=== PATIENT | male | born 1955 | race Caucasian/White ===

== ENCOUNTER 2019-07-25 05:32 | Outpatient (CLI) | payer MEDICARE ==
[~2019-07-25] VITALS: Ht 170.2 cm; Wt 62.7 kg
[2019-07-25] MEDS ORDERED: TAMS0.4C98 PO (09:46)
[2019-07-25] MEDS ORDERED: FINA5TAB6 PO (09:46)
== END 2019-07-25 09:48 | disposition home or self-care (01) ==
LOC: PREOP 05:32
PROVIDERS: ATTEND Urology
DX: Z01.818 Encounter for other preprocedural examination (principal)

== ENCOUNTER 2019-07-27 06:47 | Day surgery (SDC) | payer BC, MEDICARE ==
[2019-07-27] VITALS (10 sets, daily range): BP systolic 114–155; BP diastolic 67–102
[~2019-07-27] VITALS: Ht 170 cm; Wt 62.7 kg
[~2019-07-27 06:47] MED LIST: FINA5TAB6 PO; TAMS0.4C98 PO
[2019-07-27] MEDS ORDERED: cefTRIAXone FOR IV USE 1,000 MG in WATER (STERILE) FOR INJECTION 10 ML IV ONE (07:00)
[2019-07-27] MEDS ORDERED: LIDOCAINE PF 2% 5 ML (XYLOCAINE) VIAL ONE (07:06)
[2019-07-27] MEDS ORDERED: proPOfol 200 MG/20 ML (DIPRIVAN) VIAL IV ONE (07:06)
[2019-07-27] MEDS ORDERED: ONDANSETRON 4 MG/2 ML (SDV) Z0FRAN ONE (07:06)
[2019-07-27] MEDS ORDERED: DEXAMETHASONE 10 MG/ML (DECADRON) 1 ML VIAL ONE (07:06)
[2019-07-27] MEDS ORDERED: MIDAZOLAM 2 MG/2 ML (VERSED) VIAL ONE (07:06)
[2019-07-27] MEDS ORDERED: SEVOFLURANE (ULTANE) 15 ML INHAL SOLN ONE ×2 (07:06→08:38)
[2019-07-27] MEDS ORDERED: fentaNYL INJECTION 100 MCG/2 ML AMP ONE (07:07)
[2019-07-27] MEDS: LACTATED RINGERS 1,000 ML IV PRN ×2 (07:17→12:16)
--- NOTE | 2019-07-27 08:02 | Progress Note-Pre Operative ---
Pre-Operative Progress Note H&P Reviewed The H&P was reviewed, patient examined and no changes noted. Date Seen by Provider: Jul 27, 2019 Time Seen by Provider: 08:01 Date H&P Reviewed: Jul 27, 2019 Time H&P Reviewed: 08:01 Pre-Operative Diagnosis: BPH WITH PROSTATISM ESTEBAN SALCIDO MD Jul 27, 2019 08:02 POS
[2019-07-27] MEDS ORDERED: ROCURONIUM 10 MG/ML 5 ML SYRINGE IV ONE (08:27)
[2019-07-27] MEDS ORDERED: NEOSTIGMINE 3 MG/3 ML VIAL ONE (08:39)
[2019-07-27] MEDS ORDERED: GLYCOPYRROLATE 0.2 MG/ML (ROBINUL) 2 ML VIAL ONE (08:39)
--- NOTE | 2019-07-27 08:57 | Progress Note-Post Operative ---
Post-Operative Progess Note Surgeon (s)/Manager Photography (s) Surgeon ESTEBAN SALCIDO MD Manager Photography: NONE Pre-Operative Diagnosis BPH WITH PROSTATISM Post-Operative Diagnosis SAME Procedure & Operative Findings Date of Procedure 07/27/19 Procedure Performed/Findings UROLIFT IMPLANTS (4) Anesthesia Type GENERAL Estimated Blood Loss Estimated blood loss (mL): LESS THAN 50CC Specimens/Packing Specimens Removed NONE Packing: NONE ESTEBAN SALCIDO MD Jul 27, 2019 08:57 POS
[2019-07-27] MEDS ORDERED: HYDROmorphone 2 MG/ML VIAL (DILAUDID) IV ONE (09:00)
[2019-07-27] MEDS ORDERED: ONDANSETRON 4 MG/2 ML (SDV) Z0FRAN IVP PRN ×2 (09:00→18:00)
--- NOTE | 2019-07-27 09:02 | Discharge Inst-Urology ---
Discharge Inst-Urology Reconcile Patient Problems Problems Reviewed?: Yes Final Diagnosis BPH WITH PROSTATISM Patient Instructions/Follow Up Plan/Assessment/Instructions EKG in R.R as well as Cardiology consult for "New onset of atrial fibrillation" Please report status of urine color prior to discharge to decide plan on Mckay catheter Please make appointment to been seen in office in 2 weeks, rest till then Continue Flomax and Proscar Increase oral fluids for one week and then as needed. Diet as tolerated. Further orders and meds per cardiology If questions or concerns contact your physician Or seek help at emergency department. ESTEBAN SALCIDO MD Jul 27, 2019 09:01 POS
--- NOTE | 2019-07-27 11:46 | Consultation-Cardiology ---
HPI-Cardiology Cardiology Consultation: Date of Consultation 07/27/19 Date of Admission Attending Physician Rahat Cervantes MD Admitting Physician Marvin Rosales MD Consulting Physician Valerie OVERTON MD HPI: Time Seen by a Provider: 11:46 Chief Complaint: New onset atrial fibrillation This is a 63-year-old gentleman who follows with Dr. Cervantes. He presented for prostrate surgery. Prostrate surgery was done this morning. Anesthesia noted irregularly irregular heart rhythm. He was diagnosed with newly onset atrial fibrillation with controlled ventricular rate. The patient denies any cardiac symptoms. He denies palpitations, syncope, near-syncope or shortness of breath. He denies any previous cardiac history or evaluation. He denies active smoking. He quit smoking in 1985. He denies significant family history in the family. He denies diabetes or hypertension. Review of Systems-Cardiology Review of Systems Constitutional: As described under HPI; No As described under HPI, No no symptoms reported, No chills, No fever, No lightheadedness Eyes: No As described under HPI, No no symptoms reported, No blindness, No blurred vision, No contact lenses, No drainage, No decreased acuity, No foreign body sensation, No pain, No vision change Ears/Nose/Throat: No As described under HPI, No no symptoms reported, No chronic hearing loss, No ear discharge, No ear pain, No nasal drainage, No ulcerations Respiratory: No no symptoms reported; As described under HPI; No As described under HPI, No cough, No orthopnea, No shortness of breath, No SOB with excertion Cardiovascular: No no symptoms reported; As described under HPI; No As described under HPI, No chest pain, No edema, No irregular heart rate, No lightheadedness, No palpitations Gastrointestinal: No no symptoms reported, No As described under HPI, No abdomen distended, No abdominal pain, No blood streaked bowels, No constipation, No diarrhea, No nausea, No vomiting, No stool coloration changes Genitourinary: No As described under HPI, No burning, No dysuria, No discharge, No frequency, No flank pain, No hematuria, No urgency Skin: No rash, No skin related problems, No ulcerations Psychiatric/Neurological: No anxiety, No depression, No seizure, No focal weakness, No syncope Hematologic: No bleeding abnormalities OJF-Bqsyqj-Ucards Hx Patient Social History Alcohol Use: Denies Use Recreational Drug Use: No Smoking Status: Former Smoker Recent Foreign Travel: No Recent Infectious Disease Expo: No Immunizations Up To Date Date of Influenza Vaccine: Jun 07, 2019 Past Medical History PMH As described under Assessment. Allergies and Home Medications Allergies Coded Allergies: No Known Drug Allergies (Unverified , 07/25/19) Home Medications Finasteride 5 Mg Tablet, 5 MG PO DAILY, (Reported) Tamsulosin HCl 0.4 Mg Cap, 0.4 MG PO DAILY, (Reported) Patient Home Medication List Home Medication List Reviewed: Yes Physical Exam-Cardiology Physical Exam Vital Signs/I&O 07/27/19 07/27/19 07/27/19 07/27/19 07:10 08:51 08:51 09:02 Temp 36.2 36.6 Pulse 69 Resp 18 10 12 B/P (MAP) 145/100 (115) 146/99 (115) 155/102 (119) Pulse Ox 99 98 100 O2 Delivery Room Air OxyMask OxyMask OxyMask O2 Flow Rate 10 10 10 07/27/19 07/27/19 07/27/19 07/27/19 09:10 09:20 09:21 09:30 Temp 36.6 Resp 19 16 16 B/P (MAP) 136/93 (107) 145/90 (108) 132/95 (107) Pulse Ox 96 98 95 O2 Delivery OxyMask OxyMask Room Air Room Air O2 Flow Rate 10 10 07/27/19 07/27/19 07/27/19 09:40 09:50 12:12 Pulse 99 Resp 13 B/P (MAP) 138/82 (100) Pulse Ox 99 O2 Delivery Room Air Room Air Capillary Refill : Constitutional: appears stated age, AAO x 3; No apparent distress; well- developed, well-nourished HEENT: PERRL; No discharge; hearing is well preserved, oral hygience is good; No ulceration, No xanthelasmas are seen Neck: No carotid bruit; carotid pulses are 2 + bilaterally Respiratory: chest is bilaterally symmetric, lungs clear to auscultation Cardiovascular: irregularly irregular, S1 and S2 Gastrointestinal: soft, audible bowel sounds; No spleenomegaly Rectal: deferred Extremities: normal range of motion, non-tender, normal inspection; No clubbing, No cyanosis; no lower extremity edema bilateral; No significant edema Neurologic/Psychiatric: no motor/sensory deficits, alert, normal mood/affect, oriented x 3, power is 5/5 both on sides Skin: normal color, warm/dry; No rash, No ulcerations ECG Impression ECG Initial ECG Impression: Atrial Fibrillation A/P-Cardiology Assessment/Admission Diagnosis Status post prostrate surgery, New onset atrial fibrillation with controlled ventricular rate. Plan Status post prostrate surgery. Mckay catheter in. Mild bleeding noted. Oral anticoagulation is contraindicated for at least 24-48 hours. I discussed with Dr. Cervantes. New onset atrial fibrillation with controlled ventricular rate. Continue telemetry. Echocardiogram. Will likely be discharged with a monitor with early follow-up. Hopefully we will be able to start him on oral anticoagulation in 24-48 hours. Patient has mildly elevated blood pressure but is not known to be hypertensive. Based on the CHADSVASC score , his score without HTN will be 1 therefore aspirin is equivalent to NOAC for stroke prevention. If we include hypertension than his CHADSVASC score is 2 for age over 65 and hypertension. Then oral anticoagulation is superior to aspirin for stroke prevention. This was explained to the patient. We will likely start him on low-dose Cardizem. Thank you for your consultation. Please call me if you have any questions. David Overton MD, FACP, FACC, [facility], FHRS, CCDS Interventional Cardiology Cardiac Electrophysiology Vascular Medicine and Endovascular Interventions Clinical Quality Measures DVT/VTE Risk/Contraindication: Risk Factor Score Per Nursin RFS Level Per Nursing on Admit: 2=Moderate Valerie OVERTON MD Jul 27, 2019 11:46 POS
--- NOTE | 2019-07-27 12:07 | Anesthesia-General Post-Op ---
General Patient Condition Mental Status/LOC: Same as Preop Cardiovascular: Unsatisfactory Nausea/Vomiting: Absent Respiratory: Satisfactory Pain: Controlled Complications: Absent Post Op Complications Complications New onset A-Fib, cardiology consult obtained. Follow Up Care/Instructions Patient Instructions None needed. Anesthesia/Patient Condition Patient Condition Patient is doing well, no complaints, stable vital signs, no apparent adverse anesthesia problems. No complications reported per nursing. D/C home per [facility] Criteria: No SERENITY HERNANDEZ CRNA Jul 27, 2019 12:07 POS
--- NOTE | 2019-07-27 12:56 | OPERATIVE REPORT ---
DATE OF SERVICE: 07/27/2019 PREOPERATIVE DIAGNOSIS: Benign prostatic hypertrophy with prostatism. POSTOPERATIVE DIAGNOSIS: Benign prostatic hyperplasia with prostatism. OPERATION PERFORMED: UroLift implants "four". DESCRIPTION OF PROCEDURE: Under satisfactory general anesthesia, the patient in lithotomy position, genitalia were prepped and draped in the usual sterile fashion. The special cystoscope was introduced in the bladder. Again, it was visualized the enlarged prostate causing bladder neck obstruction, bladder trabeculation and no other abnormalities in the bladder. I went ahead and inserted four UroLift implants, two proximal about 1.5 cm distal to the bladder neck and the other two at the level of the veru. There was very good separation of the lateral lobe and a patent channel. There was minimal bleeding. It was noted that the first instrument to be used was defective. It would not lock. It will be sent back to the company to be replaced, and also, the patient had atrial fibrillation during surgery, which according to the daughter has never had before. So, we are going to go ahead and obtain a Cardiology consult in the recovery room as well as an EKG and manage accordingly. I went ahead and decided to leave the Mckay catheter to see the color of the urine and when the patient is fully awake prior to dismissal, we will decide on the plan for the catheter. The surgery and the plan was fully explained to his daughter. Job ID: [id number] DocumentID: [id number] Dictated Date: 07/27/2019 09:04:34 [employer] Superintendent Date: 07/27/2019 12:55:12 Dictated By: ESTEBAN SALCIDO MD
--- NOTE | 2019-07-27 15:04 | Consultation - Hospitalist ---
HPI History of Present Illness: HPI/Chief Complaint Pt is a 63yoCM with a PMH of BPH who was admitted this afternoon for urolift. Intraoperatively he developed atrial fibrillation which is new onset for him. He states he has had no chest pain, palpitations, or history of cardiac disease. He denies any elevated blood pressure or DM. He denies any pain from his procedure. He was already had an echo done and was seen by cardiology. He has no complains at this time. I am consulted for medical management. Source: patient Date Seen 07/27/19 Attending Physician Rahat Cervantes MD PCP Marvin Rosales MD Referring Physician Date of Admission Home Medications & Allergies Home Medications Reviewed patient Home Medication Reconciliation performed by pharmacy medication reconciliations solar fabrication technician and/or nursing. Patients Allergies have been reviewed. Allergies Allergies Coded Allergies No Known Drug Allergies (Onaqpiqlhq28/18/19) Past Qwpftmb-[id number]-Kgdsnl Hx Past Med/Social Hx: Reviewed Nursing Past Med/Soc Hx Patient Social History Alcohol Use: Denies Use Recreational Drug Use: No Smoking Status: Former Smoker Former Smoker, Quit: Jul 25, 1987 Recent Foreign Travel: No Contact w/other who traveled: No Recent Hopitalizations: No Recent Infectious Disease Expo: No Immunizations Up To Date Date of Influenza Vaccine: Jun 07, 2019 Seasonal Allergies Seasonal Allergies: Yes Past Medical History Urolift Respiratory: Asthma Genitourinary: Benign Prostatic Hyperpl Musculoskeletal: Arthritis HEENT: Cataract History of Blood Disorders: No Review of Systems Constitutional: No chills, No fever, No weakness Respiratory: No hemoptysis, No short of breath Cardiovascular: No chest pain, No edema, No Hx of Intervention, No palpitations, No syncope Physical Exam Physical Exam Vital Signs Vital Signs - First Documented 07/27/19 07:10 Temp 36.2 Pulse 69 Resp 18 B/P (MAP) 145/100 (115) Pulse Ox 99 O2 Delivery Room Air Capillary Refill : Height, Weight, BMI Height: '" Weight: lbs. oz. kg; 21.69 BMI Method: General Appearance: No Apparent Distress, WD/WN Respiratory: Lungs Clear, No Respiratory Distress Cardiovascular: No JVD, No Murmur, Irregularly Irregular Gastrointestinal: Normal Bowel Sounds, Non Tender, Soft Genital/Rectal: Other (cathether in place with pink tinged urine) Extremity: No Calf Tenderness, No Pedal Edema Neurologic/Psychiatric: Alert, Oriented x3, Normal Mood/Affect Results Results/Procedures Labs Patient resulted labs reviewed. Assessment/Plan Assessment and Plan Assess & Plan/Chief Complaint Atrial Fibrillation, new onset Rate controlled Cardiology consulted, appreciate recs Echo ordered CHASVASC 1- will need ASA when ok with urolofy BPH Urolift done done, POD #0 Management per Urology Elevated Blood Pressure No known diagnosis and now improved, will trend If remains elevated will change CHADSVASC score Diagnosis/Problems Diagnosis/Problems (1) Afib Qualifiers: Atrial fibrillation type: paroxysmal Qualified Codes: I48.0 - Paroxysmal atrial fibrillation (2) BPH (benign prostatic hyperplasia) Status: Acute Qualifiers: Lower urinary tract symptom presence: symptoms present Lower urinary tract symptom detail: unspecified Qualified Codes: N40.1 - Benign prostatic hyperplasia with lower urinary tract symptoms Clinical Quality Measures DVT/VTE Risk/Contraindication: Risk Factor Score Per Nursin RFS Level Per Nursing on Admit: 2=Moderate SOREN LEÓN MD Jul 27, 2019 15:04 POS
[2019-07-28 03:25] VITALS: BP 122/77
[2019-07-28 08:30] VITALS: BP 116/74
--- NOTE | 2019-07-28 10:35 | Progress Note - Urology ---
Progress Note-Urology Progress Notes/Assess & Plan Progress/Assessment & Plan doing well. urine clear and arnol. may discharge and start blood thinner in 48 hours if no bleeding. instructions given to him Final Diagnosis BPH and prostatism ESTEBAN SALCIDO MD Jul 28, 2019 10:35 POS
[2019-07-28 11:06] VITALS: BP 116/74
[2019-07-28] MEDS ORDERED: APIX5TAB PO ×2 (11:06→11:58)
[2019-07-28] MEDS ORDERED: SULF1TAB35 PO (11:10)
[2019-07-28] MEDS ORDERED: PHEN-640 PO (11:10)
[2019-07-28] MEDS ORDERED: DILT120C82 PO (12:02)
--- NOTE | 2019-07-28 12:02 | Cardiology Progress Note ---
Cardiology SOAP Progress Note Subjective: No further cardiac complaints. Objective: I&O/Vital Signs 07/28/19 07/28/19 07/28/19 07/28/19 01:00 03:25 07:00 08:30 Temp 35.8 37.4 Pulse 74 63 69 91 Resp 18 20 B/P (MAP) 122/77 (92) 116/74 (88) Pulse Ox 98 95 O2 Delivery Room Air Room Air 07/28/19 09:00 O2 Delivery Room Air 07/28/19 00:00 Intake Total 4110 ml Output Total 3325 ml Balance 785 ml Constitutional: appears stated age, AAO x 3; No apparent distress; well- developed, well-nourished Respiratory: chest is bilaterally symmetric, lungs clear to auscultation Cardiovascular: irregularly irregular, S1 and S2 Gastrointestional: soft, audible bowel sounds; No spleenomegaly Extremities: normal range of motion, non-tender, normal inspection; No clubbing, No cyanosis; no lower extremity edema bilateral; No significant edema Neurologic/Psychiatric: no motor/sensory deficits, alert, normal mood/affect, oriented x 3, power is 5/5 both on sides Skin: normal color, warm/dry; No rash, No ulcerations A/P: Assessment/Dx: Status post prostrate surgery, New onset atrial fibrillation with controlled ventricular rate. Plan: Status post prostrate surgery. Mckay catheter out. No further bleeding. Oral anticoagulation in 48 hours. I discussed with Dr. Cervantes. New onset atrial fibrillation with controlled ventricular rate. Echocardiogram showed normal LV function. Patient can be discharged today with an event monitor for a month. Oral anti-coag ablation with Eliquis 5 mg twice a day will be started in a couple of days. Low-dose Cardizem. I will follow-up in 5-6 weeks. Thank you for your consultation. Please call me if you have any questions. David Overton MD, FACP, FACC, FSCAI, FHRS, CCDS Interventional Cardiology Cardiac Electrophysiology Vascular Medicine and Endovascular Interventions Valerie OVERTON MD Jul 28, 2019 12:02 pm POS
--- NOTE | 2019-07-28 12:02 | NUR ---
CALLED [facility] IN [place] TO CLARIFY ELIQUIS ORDER. 5 MG BID PO 3 MONTH SUPPLY WITH NO REFILLS. START TAKING MEDICATION IN 48 HOURS. REPORT BLEEDING TO DR SALCIDO AND DR MORELAND.
== END 2019-07-28 11:30 | disposition home or self-care (01) ==
LOC: SDC 06:47 → 4TH 09:50 → SDC 07-28 11:30
PROVIDERS: ATTEND Urology
DX: N40.1 Benign prostatic hyperplasia with lower urinary tract symptoms (principal); R33.9 Retention of urine, unspecified; I48.0 Paroxysmal atrial fibrillation; N52.9 Male erectile dysfunction, unspecified; Z79.899 Other long term (current) drug therapy; Z87.891 Personal history of nicotine dependence; Z11.2 Encounter for screening for other bacterial diseases; M19.91 Primary osteoarthritis, unspecified site; H26.9 Unspecified cataract; R03.0 Elevated blood-pressure reading, without diagnosis of hypertension; I07.1 Rheumatic tricuspid insufficiency
CPT/HCPCS: 87081; 93306

== ENCOUNTER 2019-08-25 08:26 | Outpatient (RCR) | payer BC ==
[~2019-08-25 08:26] MED LIST changes: -LIDOCAINE 1% INJ 20 ML 20 ML VIAL INJ ONE; +LIDOCAINE 1% INJ 20 ML 20 ML VIAL ONE; -NS IV 1000 ML 1,000 ML IV ONE; +NS IV 1000 ML 1,000 ML ONE; -TAMS0.4C98 PO; +TMSL.4C PO
[2019-08-25] MEDS ORDERED: MIDAZOLAM 5 MG/5 ML (VERSED) VIAL ONE (09:04)
[2019-08-25] MEDS ORDERED: proPOfol 200 MG/20 ML (DIPRIVAN) VIAL IV ONE (09:04)
[2019-08-25] MEDS ORDERED: LIDOCAINE 2% VISCOUS 15 ML UDC ONE (09:05)
== END 2019-11-02 | disposition home or self-care (01) ==
LOC: CARD 08:26
PROVIDERS: ATTEND Internal Medicine Interventional Cardiology
DX: I48.91 Unspecified atrial fibrillation (principal)

== ENCOUNTER → 2019-08-25 | Day surgery (SDC) | payer BC ==
[2019-08-25] VITALS (10 sets, daily range): BP systolic 109–142; BP diastolic 77–110
[~2019-08-25] VITALS: Ht 170 cm; Wt 59.9 kg
[~2019-08-25] MED LIST changes: +APIX5TAB PO; +DILT120C82 PO; +LIDOCAINE 1% INJ 20 ML 20 ML VIAL INJ ONE; +NS IV 1000 ML 1,000 ML IV ONE; +PHEN-640 PO; +SULF1TAB35 PO
--- NOTE | 2019-08-25 12:21 | Anesthesia-General Post-Op ---
MAC Patient Condition Mental Status/LOC: Same as Preop Cardiovascular: Satisfactory Nausea/Vomiting: Absent Respiratory: Satisfactory Pain: Controlled Complications: Absent Post Op Complications Complications None Follow Up Care/Instructions Patient Instructions None needed. Anesthesiology Discharge Order Discharge Order Patient is doing well, no complaints, stable vital signs, no apparent adverse anesthesia problems. No complications reported per nursing. CRUZ ZARAGOZA CRNA Aug 25, 2019 12:21
== END ==
LOC: CATH 08:23
PROVIDERS: ATTEND Internal Medicine Interventional Cardiology
DX: I48.19 Other persistent atrial fibrillation (principal); I10 Essential (primary) hypertension; Z82.49 Family history of ischemic heart disease and other diseases of the circulatory system; Z79.01 Long term (current) use of anticoagulants; Z87.891 Personal history of nicotine dependence
CPT/HCPCS: 33285; 93005; 93312; 93320; 93325

== ENCOUNTER → 2019-09-08 | Outpatient (CLI) | payer BC ==
[~2019-09-08] VITALS: Ht 170 cm; Wt 59.9 kg
[~2019-09-08] MED LIST changes: +CATHETER FLUSH 10 ML SYR IV PRN; -LIDOCAINE 1% INJ 20 ML 20 ML VIAL ONE; -NS IV 1000 ML 1,000 ML ONE; +REGADENOSON 0.4 MG/5 ML SYR (LEXISCAN) IV ONE; +TAMS0.4C98 PO; -TMSL.4C PO
[2019-09-08 16:28] VITALS: BP 156/95
--- NOTE | 2019-09-08 16:28 | Cardiology Stress Test Report ---
Stress Test Report Type of NM Stress Test: Test Type: LEXISCAN 0.4MG/5ML Date of Procedure/Referring: Date of Procedure: Sep 08, 2019 PCP Valerie Overton MD Admitting Physician Marvin Rosales MD Indications: Persistent atrial fibrillation Baseline Heart Rate: 72 Baseline Blood Pressure: Blood Pressure Systolic: 156 Blood Pressure Diastolic: 95 Baseline EKG: Baseline EKG: sinus rhythm Summary & Conclusion: Summary: The patient was brought to the stress lab after informed consent was taken. Stress test was performed according to the Lexiscan protocol. 0.4 mg of IV Lexiscan was given. Low-grade exercise was performed. Baseline EKG showed sinus rhythm at 72 BPM, blood pressure 156/95 mmHg. Maximum heart rate of 96 bpm and blood pressure 160/90 mmHg. Patient did not have any chest pain, arrhythmias or ST segment changes during the stress test. 9.77 mCi of Myoview were given for rest imaging and 28.2 mCi of Myoview given for stress imaging. Transient ischemic dilatation score 1.14, EF 60 percent. Normal wall motion. Normal myocardial perfusion imaging during rest and stress. Conclusion: Pharmacological stress test was negative for ischemia. Normal LV function with no wall motion abnormalities. Normal myocardial perfusion imaging during rest and stress. Valerie OVERTON MD Sep 08, 2019 16:28
== END ==
LOC: CARD 09-01 08:05
PROVIDERS: ATTEND Internal Medicine Interventional Cardiology
DX: I48.19 Other persistent atrial fibrillation (principal); I10 Essential (primary) hypertension
CPT/HCPCS: 78452; 93017

== ENCOUNTER → 2019-09-13 | Outpatient (CLI) | payer BC ==
[~2019-09-13] MED LIST changes: -CATHETER FLUSH 10 ML SYR IV PRN; -REGADENOSON 0.4 MG/5 ML SYR (LEXISCAN) IV ONE; -TAMS0.4C98 PO; +TMSL.4C PO
== END ==
LOC: CARD 10:23
PROVIDERS: ATTEND Internal Medicine Interventional Cardiology
DX: I35.1 Nonrheumatic aortic (valve) insufficiency (principal); I11.9 Hypertensive heart disease without heart failure; I48.91 Unspecified atrial fibrillation
CPT/HCPCS: 93306

== ENCOUNTER 2019-10-20 20:33 | Outpatient (CLI) | payer BC | END 2019-10-21 07:09 | disposition home or self-care (01) | LOC: SLEEP 20:33 | PROVIDERS: ATTEND Internal Medicine Interventional Cardiology | DX: I48.19 Other persistent atrial fibrillation (principal); I49.5 Sick sinus syndrome; I10 Essential (primary) hypertension | CPT/HCPCS: 95810 ==

== ENCOUNTER → 2020-02-23 | Outpatient (CLI) | payer BC | LOC: LABNPT 06:36 | PROVIDERS: ATTEND Internal Medicine Interventional Cardiology | DX: Z01.818 Encounter for other preprocedural examination (principal); Z11.59 Encounter for screening for other viral diseases | CPT/HCPCS: 87635 ==

== ENCOUNTER 2020-02-27 07:06 | Day surgery (SDC) | payer BC ==
[2020-02-27] VITALS (16 sets, daily range): BP systolic 115–147; BP diastolic 67–95
[~2020-02-27] VITALS: Ht 170 cm; Wt 59.0 kg
[2020-02-27] MEDS ORDERED: NS IV 1000 ML 1,000 ML IV SCH (07:10)
--- OUTSIDE RECORDS SUMMARY | 2020-02-27 07:11 | XMS REPORT | Continuity of Care Document ---
Author Organization Unknown Address Unknown Phone Unavailable Allergies Active Description Code Type Severity Reaction Onset Reported/Identified Relationship to Patient Clinical Status Yes No Known Drug Allergies [id number] Drug Allergy Unknown N/A 07/25/2019 Medications There is no data. Problems Date Dx Coded Attending Type Code Diagnosis Diagnosed By 07/25/2019 ESTEBAN SALCIDO MD, Ot Z01.8 18 ENCOUNTER FOR OTHER PREPROCEDURAL EXAMIN 07/28/2019 ESTEBAN SALCIDO MD Ot H26.9 UNSPECIFIED CATARACT 07/28/2019 ESTEBAN SALCIDO MD, Ot I07.1 RHEUMATIC TRICUSPID INSUFFICIENCY 07/28/2019 ESTEBAN SALCIDO MD, Ot I48.0 PAROXYSMAL ATRIAL FIBRILLATION 07/28/2019 ESTEBAN SALCIDO MD, Ot M19.9 1 PRIMARY OSTEOARTHRITIS, UNSPECIFIED SITE 07/28/2019 ESTEABN SALCIDO MD, Ot N40.1 BENIGN PROSTATIC HYPERPLASIA WITH LOWER 07/28/2019 ESTEBAN SALCIDO MD, Ot N52.9 MALE ERECTILE DYSFUNCTION, UNSPECIFIED 07/28/2019 ESTEBAN SALCIDO MD Ot R03.0 ELEVATED BLOOD-PRESSURE READING, W/O EVI 07/28/2019 ESTEBAN SALCIDO MD, Ot R33.9 RETENTION OF URINE, UNSPECIFIED 07/28/2019 ESTEBAN SALCIDO MD Ot Z11.2 ENCOUNTER FOR SCREENING FOR OTHER BACTER 07/28/2019 ESTEBAN SALCIDO MD Ot Z79.8 99 OTHER SENIOR LIVING (CURRENT) DRUG THERAPY 07/28/2019 ESTEBAN SALCIDO MD, Ot Z87.8 91 PERSONAL HISTORY OF NICOTINE DEPENDENCE 08/13/2019 Valerie MORELAND MD Ot I48.91 UNSPECIFIED ATRIAL FIBRILLATION 08/24/2019 Valerie MORELAND MD Ot I48.91 UNSPECIFIED ATRIAL FIBRILLATION 08/29/2019 Valerie MORELAND MD Ot I10 ESSENTIAL (PRIMARY) HYPERTENSION 08/29/2019 Valerie MORELAND MD Ot I48.19 OTHER PERSISTENT ATRIAL FIBRILLATION 08/29/2019 Valerie MORELAND MD Ot Z79.01 PHOTOVOLTAIC FABRICATION TECHNICIAN (CURRENT) USE OF ANTICOAGULANT 08/29/2019 Valerie MORELAND MD Ot Z82.49 FAMILY HX OF ISCHEM HEART DIS AND OTH DI 08/29/2019 Valerie MORELAND MD Ot Z87.891 PERSONAL HISTORY OF NICOTINE DEPENDENCE 09/01/2019 Valerie MORELAND MD Ot I48.91 UNSPECIFIED ATRIAL FIBRILLATION 09/01/2019 Valerie MORELAND MD Ot I10 ESSENTIAL (PRIMARY) HYPERTENSION 09/01/2019 Valerie MORELAND MD Ot I48.19 OTHER PERSISTENT ATRIAL FIBRILLATION 09/01/2019 Valerie MORELAND MD Ot Z79.01 SENIOR LIVING (CURRENT) USE OF ANTICOAGULANT 09/01/2019 Valerie MORELAND MD Ot Z82.49 FAMILY HX OF ISCHEM HEART DIS AND OTH DI 09/01/2019 Valerie MORELAND MDZWAN Ot Z87.891 PERSONAL HISTORY OF NICOTINE DEPENDENCE 09/05/2019 Valerie MORELAND MDZWAN Ot I10 ESSENTIAL (PRIMARY) HYPERTENSION 09/05/2019 ANICETO PRECIADO M PASTORA Ot I48.19 OTHER PERSISTENT ATRIAL FIBRILLATION 09/05/2019 Valerie MORELAND MD Ot Z79.01 PHOTOVOLTAIC FABRICATION TECHNICIAN (CURRENT) USE OF ANTICOAGULANT 09/05/2019 Valerie MORELAND MD Ot Z82.49 FAMILY HX OF ISCHEM HEART DIS AND OTH DI 09/05/2019 Valerie MORELAND MD PASTORA Ot Z87.891 PERSONAL HISTORY OF NICOTINE DEPENDENCE 09/09/2019 Valerie MORELAND MDZWAN Ot I10 ESSENTIAL (PRIMARY) HYPERTENSION 09/09/2019 Valerie MORELAND MD Ot I48.19 OTHER PERSISTENT ATRIAL FIBRILLATION 09/09/2019 Valerie MORELAND MDZWAN Ot Z79.01 PHOTOVOLTAIC FABRICATION TECHNICIAN (CURRENT) USE OF ANTICOAGULANT 09/09/2019 Valerie MORELAND MD PASTORA Ot Z82.49 FAMILY HX OF ISCHEM HEART DIS AND OTH DI 09/09/2019 Valerie MORELAND MD Ot Z87.891 PERSONAL HISTORY OF NICOTINE DEPENDENCE 09/12/2019 Valerie MORELAND MD Ot I48.91 UNSPECIFIED ATRIAL FIBRILLATION 09/12/2019 Valerie MORELAND MD Ot I10 ESSENTIAL (PRIMARY) HYPERTENSION 09/12/2019 Valerie MORELAND MD Ot I48.19 OTHER PERSISTENT ATRIAL FIBRILLATION 09/12/2019 Valerie MORELAND MD Ot Z79.01 SENIOR LIVING (CURRENT) USE OF ANTICOAGULANT 09/12/2019 Valerie MORELAND MD Ot Z82.49 FAMILY HX OF ISCHEM HEART DIS AND OTH DI 09/12/2019 Valerie MORELAND MD Ot Z87.891 PERSONAL HISTORY OF NICOTINE DEPENDENCE 09/12/2019 Valerie MORELAND MD Ot I48.91 UNSPECIFIED ATRIAL FIBRILLATION 09/12/2019 Valerie MORELAND MD Ot I10 ESSENTIAL (PRIMARY) HYPERTENSION 09/12/2019 Valerie MORELAND MD Ot I48.19 OTHER PERSISTENT ATRIAL FIBRILLATION 09/12/2019 Valerie MORELAND MD Ot Z79.01 PHOTOVOLTAIC FABRICATION TECHNICIAN (CURRENT) USE OF ANTICOAGULANT 09/12/2019 Valerie MORELAND MD Ot Z82.49 FAMILY HX OF ISCHEM HEART DIS AND OTH DI 09/12/2019 Valerie MORELAND MD Ot Z87.891 PERSONAL HISTORY OF NICOTINE DEPENDENCE 09/20/2019 Valerie MORELAND MD Ot I11 .9 HYPERTENSIVE HEART DISEASE WITHOUT HEART 09/20/2019 Valerie MORELAND MD Ot I35 .1 NONRHEUMATIC AORTIC (VALVE) INSUFFICIENC 09/20/2019 Valerie MORELAND MD Ot I48.91 UNSPECIFIED ATRIAL FIBRILLATION 09/22/2019 Valerie MORELAND MD Ot I10 ESSENTIAL (PRIMARY) HYPERTENSION 09/22/2019 Valerie MORELAND MD Ot I48.19 OTHER PERSISTENT ATRIAL FIBRILLATION 09/29/2019 Valerie MORELAND MD Ot I10 ESSENTIAL (PRIMARY) HYPERTENSION 09/29/2019 Valerie MORELAND MD Ot I48.19 OTHER PERSISTENT ATRIAL FIBRILLATION 09/29/2019 Valerie MORELAND MD Ot Z79.01 SENIOR LIVING (CURRENT) USE OF ANTICOAGULANT 09/29/2019 ANICETO PRECIADO, Valerie GUILLORY Ot Z82.49 FAMILY HX OF ISCHEM HEART DIS AND OTH DI 09/29/2019 Valerie MORELAND MD Ot Z87.891 PERSONAL HISTORY OF NICOTINE DEPENDENCE 09/29/2019 ANICETO PRECIADO, Valerie GUILLORY Ot I11 .9 HYPERTENSIVE HEART DISEASE WITHOUT HEART 09/29/2019 ANICETO PRECIADO, Valerie GUILLORY Ot I35 .1 NONRHEUMATIC AORTIC (VALVE) INSUFFICIENC 09/29/2019 Valerie MORELAND MD Ot I48.91 UNSPECIFIED ATRIAL FIBRILLATION 09/30/2019 Valerie MORELAND MD Ot I10 ESSENTIAL (PRIMARY) HYPERTENSION 09/30/2019 Valerie MORELAND MD Ot I48.19 OTHER PERSISTENT ATRIAL FIBRILLATION 09/30/2019 Valerie MORELAND MD Ot Z79.01 SENIOR LIVING (CURRENT) USE OF ANTICOAGULANT 09/30/2019 Valerie MORELAND MD Ot Z82.49 FAMILY HX OF ISCHEM HEART DIS AND OTH DI 09/30/2019 Valerie MORELAND MD Ot Z87.891 PERSONAL HISTORY OF NICOTINE DEPENDENCE 10/06/2019 Valerie MORELAND MD Ot I10 ESSENTIAL (PRIMARY) HYPERTENSION 10/06/2019 Valerie MORELAND MD Ot I48.19 OTHER PERSISTENT ATRIAL FIBRILLATION 10/06/2019 Valerie MORELAND MD Ot Z79.01 SENIOR LIVING (CURRENT) USE OF ANTICOAGULANT 10/06/2019 Valerie MORELAND MD Ot Z82.49 FAMILY HX OF ISCHEM HEART DIS AND OTH DI 10/06/2019 Valerie MORELAND MD Ot Z87.891 PERSONAL HISTORY OF NICOTINE DEPENDENCE 10/21/2019 Valerie MORELAND MD Ot G47 .8 OTHER SLEEP DISORDERS 10/21/2019 Valerie MORELAND MD Ot I10 ESSENTIAL (PRIMARY) HYPERTENSION 10/21/2019 Valerie MORELAND MD Ot I48.19 OTHER PERSISTENT ATRIAL FIBRILLATION 10/21/2019 ANICETO PRECIADO, M PASTORA Ot I49 .5 SICK SINUS SYNDROME 10/21/2019 ANICETO PRECIADO, M PASTORA Ot R06.83 SNORING 10/23/2019 ANICETO PRECIADO, M PASTORA Ot I10 ESSENTIAL (PRIMARY) HYPERTENSION 10/23/2019 ANICETO PRECIADO, M PASTORA Ot I48.19 OTHER PERSISTENT ATRIAL FIBRILLATION 10/23/2019 ANICETO PRECIADO, M PASTORA Ot I49 .5 SICK SINUS SYNDROME 10/23/2019 ANICETO PRECIADO, M PASTORA Ot I49 .9 CARDIAC ARRHYTHMIA, UNSPECIFIED 10/28/2019 Valerie MORELAND MD Ot G47 .8 OTHER SLEEP DISORDERS 10/28/2019 ANICETO PRECIADO, M PASTORA Ot I10 ESSENTIAL (PRIMARY) HYPERTENSION 10/28/2019 ANICETO PRECIADO, M PASTORA Ot I48.19 OTHER PERSISTENT ATRIAL FIBRILLATION 10/28/2019 ANICETO PRECIADO M PASTORA Ot I49 .5 SICK SINUS SYNDROME 10/28/2019 ANICETO PRECIADO, M PASTORA Ot R06.83 SNORING 11/02/2019 ANICETO PRECIADO, M PASTORA Ot I48.91 UNSPECIFIED ATRIAL FIBRILLATION 11/03/2019 ANICETO PRECIADO M PASTORA Ot I48.91 UNSPECIFIED ATRIAL FIBRILLATION 01/04/2020 Valerie MORELAND MD Ot I11 .9 HYPERTENSIVE HEART DISEASE WITHOUT HEART 01/04/2020 ANICETO PRECIADO, Valerie GUILLORY Ot I35 .1 NONRHEUMATIC AORTIC (VALVE) INSUFFICIENC 01/04/2020 ANICETO PRECIADO, M PASTORA Ot I48.91 UNSPECIFIED ATRIAL FIBRILLATION 01/04/2020 ANICETO PRECIADO M PASTORA Ot I10 ESSENTIAL (PRIMARY) HYPERTENSION 01/04/2020 ANICETO PRECIADO, M PASTORA Ot I48.19 OTHER PERSISTENT ATRIAL FIBRILLATION 01/04/2020 ANICETO PRECIADO M PASTORA Ot I10 ESSENTIAL (PRIMARY) HYPERTENSION 01/04/2020 ANICETO PRECIADO M PASTORA Ot I48.19 OTHER PERSISTENT ATRIAL FIBRILLATION 01/04/2020 ANICETO PRECIADO, M PASTORA Ot Z79.01 SENIOR LIVING (CURRENT) USE OF ANTICOAGULANT 01/04/2020 Valerie MORELAND MD Ot Z82.49 FAMILY HX OF ISCHEM HEART DIS AND OTH DI 01/04/2020 Valerie MORELAND MD Ot Z87.891 PERSONAL HISTORY OF NICOTINE DEPENDENCE 01/04/2020 Ot I48.91 UNS PECIFIED ATRIAL FIBRILLATION 02/16/2020 Valerie MORELAND MD Ot I11 .9 HYPERTENSIVE HEART DISEASE WITHOUT HEART 02/16/2020 Valerie MORELAND MD Ot I35 .1 NONRHEUMATIC AORTIC (VALVE) INSUFFICIENC 02/16/2020 Valerie MORELAND MD Ot I48.91 UNSPECIFIED ATRIAL FIBRILLATION 02/16/2020 Valerie MORELAND MD Ot I10 ESSENTIAL (PRIMARY) HYPERTENSION 02/16/2020 Valerie MORELAND MD Ot I48.19 OTHER PERSISTENT ATRIAL FIBRILLATION 02/16/2020 Valerie MORELAND MD Ot I10 ESSENTIAL (PRIMARY) HYPERTENSION 02/16/2020 Valerie MORELAND MD Ot I48.19 OTHER PERSISTENT ATRIAL FIBRILLATION 02/16/2020 Valerie MORELAND MD Ot Z79.01 SENIOR LIVING (CURRENT) USE OF ANTICOAGULANT 02/16/2020 Valerie MORELAND MD Ot Z82.49 FAMILY HX OF ISCHEM HEART DIS AND OTH DI 02/16/2020 Valerie MORELAND MD Ot Z87.891 PERSONAL HISTORY OF NICOTINE DEPENDENCE 02/16/2020 Ot I48.91 UNS PECIFIED ATRIAL FIBRILLATION 02/24/2020 Valerie MORELAND MD Ot Z01.818 ENCOUNTER FOR OTHER PREPROCEDURAL EXAMIN 02/24/2020 Valerie MORELAND MD Ot Z11.59 ENCOUNTER FOR SCREENING FOR OTHER VIRAL Procedures There is no data. Results Test Result Range Methicillin resistant Staphylococcus aur eus (MRSA) screening culture - 07/27/19 07:10 Methicillin resistant Staphylococcus aureus (MRSA) scr eening culture NEG NRG Coronavirus SARS-CoV-2 SO 2019 - 0 07:55 Coronavirus Ab [Units/volume] in Serum Negative Negative Encounters ACCT No. Visit Date/Time Discharge Status Pt. Type Provider Facility Loc./Unit Complaint [id number] 02/23/2020 06:36:00 23:59:59 CLS Outpatient Valerie MORELAND MD [facility] LABNPT [id number] 08/25/2019 08:26:00 00:01:00 DIS Outpatient Valerie MORELAND MD [facility] CARD AF [id number] 10/20/2019 20:33:00 07:09:00 DIS Outpatient Valerie MORELAND MD [facility] SLEEP HYPERTENSION,PERSISTENT AFIB [id number] 09/13/2019 10:23:00 23:59:59 CLS Outpatient Valerie MORELAND MD [facility] CARD ESSENTIAL ATRIAL FIBRIL LATION [id number] 09/08/2019 08:03:00 23:59:59 CLS Outpatient Valerie MORELAND MD [facility] CARD PERSISTENT ATRIAL FIBRI LLATION [id number] 08/25/2019 08:23:00 23:59:59 CLS Outpatient Valerie MORELAND MD [facility] CATH PERSISTENT AF [id number] 07/27/2019 06:47:00 11:30:00 DIS Outpatient ESTEBAN SALCIDO MD [facility] SDC BPH, RETENTION [id number] 07/25/2019 05:32:00 019 09:48:00 DIS Outpatient ESTEBAN SALCIDO MD [facility] PREOP BPH, RETENTION [id number] 02/27/2020 08:00:00 P EN Preadmit Valerie MORELAND MD [facility] CATH PERSISTENT AFIB [id number] 11/03/2019 13:00:00 Document Registration
[2020-02-27] MEDS ORDERED: ISOPROTERENOL 0.2 MG/D5W 50 ML IV ONE (07:15)
[2020-02-27 07:36] LABS: HEMOGLOBIN 14.7 G/DL (13.3-17.7); MEAN PLATELET VOLUME 9.9 FL (7.4-10.4); RED CELL DISTRIBUTION WIDTH 13.2 % (10.0-14.5); WHITE BLOOD COUNT 6.2 10^3/uL (4.3-11.0)
[2020-02-27] MEDS ORDERED: proPOfol 200 MG/20 ML (DIPRIVAN) VIAL IV ONE (07:38)
[2020-02-27] MEDS ORDERED: MIDAZOLAM 2 MG/2 ML (VERSED) VIAL ONE (07:38)
[2020-02-27] MEDS ORDERED: ROCURONIUM 10 MG/ML 5 ML SYRINGE IV ONE ×2 (07:38→12:58)
[2020-02-27] MEDS ORDERED: DEXAMETHASONE 10 MG/ML (DECADRON) 1 ML VIAL ONE (07:39)
[2020-02-27] MEDS ORDERED: fentaNYL INJECTION 100 MCG/2 ML AMP ONE (07:39)
[2020-02-27] MEDS ORDERED: ONDANSETRON 4 MG/2 ML (SDV) Z0FRAN ONE (07:39)
[2020-02-27] MEDS ORDERED: LIDOCAINE BOLUS 100 MG/5 ML (IMS) SYR ONE (07:40)
[2020-02-27] MEDS ORDERED: APIX5TAB PO (07:42)
[2020-02-27] MEDS ORDERED: DRON400T2 PO (07:42)
[2020-02-27] MEDS ORDERED: LIDOCAINE 1% INJ 20 ML 20 ML VIAL ONE (07:46)
[2020-02-27] MEDS ORDERED: NS IV 1000 ML 3,000 ML ONE (07:46)
[2020-02-27] MEDS ORDERED: HEParin (CATH LAB) 3,000 ML IV ONE (07:46)
[2020-02-27] MEDS ORDERED: HEParin 1000 UNIT/ML (10ML VIAL) FOR BOLUS ONE ×3 (07:46→12:53)
[2020-02-27 07:53] LABS: INR 1.2 (0.8-1.4); PROTHROMBIN TIME PATIENT 16.2 SEC (12.2-14.7)
[2020-02-27 07:56] LABS: ALANINE AMINOTRANSFERASE 18 U/L (0-55); ALBUMIN 4.1 GM/DL (3.2-4.5); ALKALINE PHOSPHATASE 82 U/L (40-136); BILIRUBIN,TOTAL 0.7 MG/DL (0.1-1.0); BUN/CREATININE RATIO 13; CALCIUM 8.8 MG/DL (8.5-10.1); CARBON DIOXIDE 26 MMOL/L (21-32); CHLORIDE 106 MMOL/L (98-107); CREATININE SERUM 0.97 MG/DL (0.60-1.30); GFR ESTIMATED > 60; GLUCOSE 97 MG/DL (70-105); POTASSIUM 3.6 MMOL/L (3.6-5.0); SODIUM 141 MMOL/L (135-145); TOTAL PROTEIN 7.1 GM/DL (6.4-8.2)
[2020-02-27] MEDS ORDERED: HEParin DRIP 25000 UNIT/500ML 500 ML IV ONE (08:52)
[2020-02-27] MEDS ORDERED: LACTATED RINGERS 1,000 ML IV ONE ×2 (09:48→13:16)
[2020-02-27] MEDS ORDERED: PHENYLEPHRINE 100 MCG/ML 10 ML (ANESTHESIA) SYR ONE (09:55)
[2020-02-27] MEDS ORDERED: NS IV 1000 ML 1,000 ML ONE (09:57)
[2020-02-27] MEDS ORDERED: SEVOFLURANE (ULTANE) 15 ML INHAL SOLN ONE ×4 (11:29→14:17)
[2020-02-27] MEDS ORDERED: NEOSTIGMINE 3 MG/3 ML VIAL ONE (13:40)
[2020-02-27] MEDS ORDERED: GLYCOPYRROLATE 0.2 MG/ML (ROBINUL) 2 ML VIAL ONE (13:40)
--- NOTE | 2020-02-27 13:48 | Electrophysiology Procedure ---
EP Procedure Persistent atrial fibrillation ablation operative report. DATE OF SERVICE:02/27/20 REFERRING PHYSICIAN: CARDIAC VP DELIVERY: David Overton MD, [facility] INDICATION: Persistent atrial fibrillation refractory to medical therapy, Typical atrial flutter ablation PREOPERATIVE DIAGNOSIS: Persistent atrial fibrillation refractory to medical therapy, Typical atrial flutter ablation POSTOPERATIVE DIAGNOSES: Successful persistent atrial fibrillation ablation, Typical atrial flutter ablation. HISTORY: This is a 64-year-old gentleman who has persistent atrial fibrillation refractory to drug therapy. He presented to the EP lab with atrial flutter. The patient is planned for comprehensive EP study and ablation. PROCEDURE PERFORMED: 1. Comprehensive EP study with induction. 2. Fluoroscopy. 3. Left atrial pacing and recording. 4. Drug infusion. 5. Left ventricular pacing and recording. 6. Comprehensive 3D mapping with the carto system. 7. Intracardiac echocardiogram. 8. Left iliac vein venogram: Medical necessity: Significant tortuosity and difficulty advancing guidewire, need to rule out significant stenosis. 9. Inferior vena cava venogram: Medical necessity: Significant tortuosity and difficulty advancing guidewire and sheaths, need to rule out significant stenosis. 10. Pulmonary vein isolation. 11. Additional atrial fibrillation ablation, roofline. 12. Additional atrial fibrillation ablation, complex fractionated atrial electrogram ablation. 13. Ablation of supraventricular tachycardia (right sided typical atrial flutter ablation) 14. Direct electrical cardioversion. COMPLICATION: None. ESTIMATED BLOOD LOSS: 10 mL. CONTRAST USED: 20 mL. FLUOROSCOPY TIME: 19.9 minutes. FLUOROSCOPY DOSE: 223 mgy. SPECIMENS: None. ANESTHESIA: Done by our anesthesia colleagues. ANTICOAGULATION: Uninterrupted anticoagulation PROCEDURE IN DETAIL: After informed consent was taken, the patient was brought to the EP lab. Anesthesia was provided by our anesthesia colleagues. The patient was draped and prepped in the usual sterile fashion. The patient presented to the EP lab in atrial flutter/fibrillation. Access was gained in the right femoral vein with a 8 Yemeni and a 6 Yemeni sheath. Access was gained in the left femoral vein however we had difficulty advancing the wire. Significant tortuosity. We gained to access. We took a long sheath and advanced To the tortuous point. Venogram was done which demonstrated significant tortuosity In the left iliac vein however there was no significant stenosis. We therefore placed A 10 Yemeni sheath as well as a 6 Yemeni sheath. On the right side. Upgraded The 6 Yemeni sheath to a 10 Yemeni sheath. However we had difficulty advancing The wire as well as the 10 Yemeni sheath, therefore IVC venogram was done, To rule out any vascular complication or stenosis. Venogram showed that we were intraluminal And there was no vascular complication or stenosis. Ice catheter was advanced from the right access site. CS multipolar catheter was advanced from the left Access site. A guidewire was advanced into the SVC. Long sheath was advanced on top of the guidewire into the SVC. The wire was taken out. We then went in with the transseptal needle. Under fluoroscopic and intracardiac echocardiogram guidance, the sheath and transseptal needle were pulled into the fossa ovalis. Transseptal puncture was performed. This was confirmed with left atrial pressure measurements. The transseptal needle was taken out and we decided to proceed with the procedure. IV heparin was given and ACT was kept over 350 seconds. The guidewire was taken out and a [employer] Pentaray catheter was advanced for left atrial mapping. We also used the intracardiac echocardiogram to create an ultrasound shell of the left atrium and identified all vital landmarks including the left atrial appendage, left pulmonary veins, right pulmonary veins, mitral valve, fossa ovalis, aortic cusps. With this multipolar mapping catheter left atrial voltage and electro anatomical map was created. Since the patient was in atrial flutter, Activation mapping was also done. Post-pacing interval from proximal CS electrodes compared to Post pacing interval from distal CS electrodes demonstrated right atrial flutter. Complex fractionated atrial electrograms were tagged in the left atrium with the multipolar mapping catheter. The multipolar mapping catheter was then taken out and and irrigated ablation catheter was advanced into the left atrium. Pulmonary vein isolation was performed. The patient continued to be in atrial tachycardia. Complex fractionated atrial electrograms were identified and ablated. Patient continued to be in atrial tachycardia therefore roofline was done. The patient was then cardioverted with a single 200 J shock. Patient converted to sinus rhythm. Bidirectional block in both left and right sided pulmonary veins was confirmed. This was done with high output pacing in each pulmonary vein. Rapid atrial pacing did not induce tachycardia. After 30 minutes of ablation we rechecked the veins and reconfirmed bidirectional block. We then came to the right side. And CTI line was done and bidirectional block Across the CTI line was confirmed. High-dose Isuprel was started at 16mg/minute. Rapid atrial pacing did not induce atrial fibrillation. After 30 minutes pacing from both sides of the CTI line was done And bidirectional block was reconfirmed. Comprehensive EP study was done. Left atrial pacing did not demonstrate any evidence of left-sided bypass tract. Left ventricular pacing and recording was also done, which did not demonstrate any VA conduction at pacing at cycle length 600 ms. A 3D electroanatomic mapping was donewith the carto system. Throughout the procedure, intracardiac echocardiogram did not demonstrate any pericardial effusion.The patienttolerated the procedurewell and did not have any complication. The patientleft the lab in sinus rhythm. Total ablation time was 27 minutes and 39 seconds. MEASUREMENTS/EP STUDY: Tachycardia cycle length, atrial cycle length, 258 ms, QRS duration 88 ms, R-R interval 600 ms, Left ventricular pacing and recording did not demonstrate any retrograde conduction on pacing at 600 ms. AV Wenckebach at cycle length 520 ms, Atrial ERP 600/380 ms, PLAN: The patient will be observed overnight and will be discharged home tomorrow with precise followup instructions. David Overton MD, [facility] Cardiac Electrophysiology Valerie OVERTON MD Feb 27, 2020 13:48
--- NOTE | 2020-02-27 13:52 | History & Physicial-Cardiolgy ---
HPI-Cardiology Cardiology Consultation: Date of Consultation 02/27/20 Date of Admission Attending Physician Valerie Overton MD Admitting Physician Marvin Rosales MD Consulting Physician Valerie OVERTON MD HPI: Time Seen by a Provider: 08:30 Chief Complaint: Persistent atrial fibrillation This is a 64-year-old gentleman with history of persistent atrial fibrillation refractory to antiarrhythmic therapy. Review of Systems-Cardiology Review of Systems Constitutional: As described under HPI; No As described under HPI, No no symptoms reported, No chills, No fever, No lightheadedness Eyes: No As described under HPI, No no symptoms reported, No blindness, No blurred vision, No contact lenses, No drainage, No decreased acuity, No foreign body sensation, No pain, No vision change Ears/Nose/Throat: No As described under HPI, No no symptoms reported, No chronic hearing loss, No ear discharge, No ear pain, No nasal drainage, No ulcerations Respiratory: No no symptoms reported; As described under HPI; No As described under HPI, No cough, No orthopnea, No shortness of breath, No SOB with excertion Cardiovascular: No no symptoms reported; As described under HPI; No As described under HPI, No chest pain, No edema, No irregular heart rate, No lightheadedness, No palpitations Gastrointestinal: No no symptoms reported, No As described under HPI, No abdomen distended, No abdominal pain, No blood streaked bowels, No constipation, No diarrhea, No nausea, No vomiting, No stool coloration changes Genitourinary: No As described under HPI, No burning, No dysuria, No discharge, No frequency, No flank pain, No hematuria, No urgency Skin: No rash, No skin related problems, No ulcerations Psychiatric/Neurological: No anxiety, No depression, No seizure, No focal weakness, No syncope Hematologic: No bleeding abnormalities TEE-[id number]-[id number] Hx Patient Social History Alcohol Use: Denies Use Recreational Drug Use: No Smoking Status: Former Smoker Recent Foreign Travel: No Immunizations Up To Date Tetanus Booster (TDap): Unknown Date of Influenza Vaccine: Jan 04, 2019 Past Medical History PMH As described under Assessment. Allergies and Home Medications Allergies Coded Allergies: No Known Drug Allergies (Unverified , 07/25/19) Home Medications Apixaban 5 Mg Tablet, 5 MG PO BID, (Reported) Dronedarone HCl 400 Mg Tablet, 400 MG PO BID, (Reported) Patient Home Medication List Home Medication List Reviewed: Yes Physical Exam-Cardiology Physical Exam Vital Signs/I&O 02/27/20 07:24 Temp 36.6 Pulse 70 Resp 16 B/P (MAP) 147/95 (112) Pulse Ox 99 O2 Delivery Room Air Capillary Refill : Constitutional: appears stated age; No apparent distress; well-developed, well- nourished HEENT: PERRL; No discharge; hearing is well preserved, oral hygience is good; No ulceration, No xanthelasmas are seen Neck: No carotid bruit; carotid pulses are 2 + bilaterally Respiratory: chest is bilaterally symmetric, lungs clear to auscultation Cardiovascular: irregularly irregular, S1 and S2 Gastrointestinal: soft, audible bowel sounds; No spleenomegaly Rectal: deferred Extremities: No clubbing, No cyanosis; no lower extremity edema bilateral; No significant edema Neurologic/Psychiatric: no motor/sensory deficits, alert, normal mood/affect, oriented x 3, power is 5/5 both on sides Skin: normal color, warm/dry; No rash, No ulcerations Data Review Labs Laboratory Tests 02/27/20 07:28: White Blood Count 6.2, Red Blood Count 4.37, Hemoglobin 14.7, Hematocrit 42, Mean Corpuscular Volume 96, Mean Corpuscular Hemoglobin 34, Mean Corpuscular Hemoglobin Concent 35, Red Cell Distribution Width 13.2, Platelet Count 248, Mean Platelet Volume 9.9, Prothrombin Time 16.2H, INR Comment 1.2, Activated Partial Thromboplast Time 34, Sodium Level 141, Potassium Level 3.6, Chloride Level 106, Carbon Dioxide Level 26, Anion Gap 9, Blood Urea Nitrogen 13, Creatinine 0.97, Estimat Glomerular Filtration Rate > 60, BUN/Creatinine Ratio 13, Glucose Level 97, Calcium Level 8.8, Corrected Calcium 8.7, Total Bilirubin 0.7, Aspartate Amino Transf (AST/SGOT) 21, Alanine Aminotransferase (ALT/SGPT) 18, Alkaline Phosphatase 82, Total Protein 7.1, Albumin 4.1 ECG Impression ECG Initial ECG Impression: Atrial Fibrillation A/P-Cardiology Assessment/Admission Diagnosis Persistent atrial fibrillation refractory to medical therapy Admission Status: Observation Plan Atrial fibrillation ablation is recommended. Valerie OVERTON MD Feb 27, 2020 13:52
[2020-02-27] MEDS ORDERED: PROTAMINE 50 MG/5 ML VIAL ONE (13:57)
[2020-02-27] MEDS ORDERED: PATIENT MAY USE OWN MEDS, ALL PO SCH (14:00)
[2020-02-27] MEDS ORDERED: morphine INJ 10 MG/ML 1ML (SYR OR VIAL) IVP ONE (14:45)
[2020-02-27] MEDS ORDERED: ONDANSETRON 4 MG/2 ML (SDV) Z0FRAN IVP PRN (14:45)
[2020-02-27] MEDS ORDERED: HYDROmorphone 2 MG/ML VIAL (DILAUDID) IV ONE (14:45)
[2020-02-27] MEDS: NS IV 1000 ML 1,000 ML IV SCH (15:30)
--- NOTE | 2020-02-27 15:30 | NUR ---
REPORT RECEIVED FROM IAIN CLIFTON. PT HAS A SLIGHT TREMOR, STATED THIS WAS NORMAL FOR HIM. DAUGHTER AT BEDSIDE. NO NEW COMPLAINTS. VITALS HAVE REMAINED STABLE. WILL CONTINUE TO MONITOR.
[2020-02-27] MEDS ORDERED: APIXABAN 5 MG (ELIQUIS) TABLET PO SCH (21:00)
--- NOTE | 2020-02-27 21:30 | NUR ---
1900: MANUAL PRESSURE HELD TO PT'S RIGHT GROIN BY DAY SHIFT RN AT THIS TIME; RIGHT THIGH APPEARED TO BE SLIGHTLY MORE SWOLLEN THAN THE LEFT SIDE. PT'S LEFT SIDE PREVIOUS BLED DURING RECOVERY. THIS RN NOTIFIED DR. MORELAND OF BLEEDING CONCERNS AND 2100 DOSE OF ELIQUIS ORDERED. WILL EVALUATE LATER. 2100: RIGHT GROIN UNCHANGED SINCE MANUAL PRESSURE HELD AND LEFT GROIN SITE IS ASYMPTOMATIC AT THIS TIME. ORDER RECEIVED TO GIVE 2100 DOSE OF ELIQUIS.
[2020-02-27] MEDS: APIXABAN 5 MG (ELIQUIS) TABLET PO SCH (21:38)
[2020-02-27] MEDS: DRONEDARONE TABLET 400 MG TABLET PO SCH (21:38)
[2020-02-28] VITALS (10 sets, daily range): BP systolic 134–158; BP diastolic 57–99
[2020-02-28] MEDS: NS IV 1000 ML 1,000 ML IV SCH ×2 (00:51→08:12)
[2020-02-28 03:50] LABS: MEAN PLATELET VOLUME 9.8 FL (7.4-10.4); RED CELL DISTRIBUTION WIDTH 13.6 % (10.0-14.5); WHITE BLOOD COUNT 12.5 10^3/uL (4.3-11.0)
[2020-02-28 04:04] LABS: CHLORIDE 107 MMOL/L (98-107); SODIUM 140 MMOL/L (135-145)
[2020-02-28 04:05] LABS: CALCIUM 8.3 MG/DL (8.5-10.1); GLUCOSE 159 MG/DL (70-105)
[2020-02-28 04:07] LABS: CARBON DIOXIDE 24 MMOL/L (21-32)
[2020-02-28 04:09] LABS: CREATININE SERUM 0.94 MG/DL (0.60-1.30); GFR ESTIMATED > 60
[2020-02-28 04:10] LABS: BUN/CREATININE RATIO 14
[2020-02-28] MEDS: DRONEDARONE TABLET 400 MG TABLET PO SCH (08:11)
[2020-02-28] MEDS: APIXABAN 5 MG (ELIQUIS) TABLET PO SCH (08:12)
--- NOTE | 2020-02-28 08:19 | Anesthesia-General Post-Op ---
General Patient Condition Mental Status/LOC: Same as Preop Cardiovascular: Satisfactory Nausea/Vomiting: Absent Respiratory: Satisfactory Pain: Controlled Complications: Absent Post Op Complications Complications None Follow Up Care/Instructions Patient Instructions None needed. Anesthesia/Patient Condition Patient Condition Patient is doing well, no complaints, stable vital signs, no apparent adverse anesthesia problems. No complications reported per nursing. [place] GOODRICH CRNA Feb 28, 2020 08:19
--- NOTE | 2020-02-28 17:08 | Cardiology Discharge Summary ---
Diagnosis/Chief Complaint Date of Admission 02/27/2020 Date of Discharge 02/28/2020 Admission Diagnosis Persistent atrial fibrillation, typical atrial flutter. Final/Discharge Diagnosis Successful persistent atrial fibrillation ablation, Successful typical atrial flutter ablation. Chief Complaint/HPI Chief Complaint/HPI This is a 64-year-old gentleman with history of persistent atrial fibrillation refractory to antiarrhythmic therapy. Discharge Summary Procedures Persistent atrial fibrillation ablation: Pulmonary vein isolation, complex fractionated atrial electrogram ablation, roofline. Typical atrial flutter ablation successfully. Very tortuous bilateral iliac veins. Discharge Physical Examination Normal cardiovascular examination. Hospital Course Was the Problem List Reviewed?: Yes Unremarkable. Discussion & Recommendations Discussion Discharge took over 30 minutes to complete. The procedure were discussed at length with the patient and daughter. Patient will continue anti-coagulation and antiarrhythmic therapy. We'll follow-up in 3-4 weeks. Follow up appt.: Dr. Overton in 3-4 weeks. Dicharge Diet: Cardiac Diet Activity as Tolerated: Yes Home Medications Reviewed patient Home Medication Reconciliation performed by pharmacy medication reconciliations environmental laboratory technician and/or nursing. Patients Allergies have been reviewed. Discharge Home Medications: Reviewed and agree with Discharge Medication list on patient's Discharge Instruction sheet Condition at discharge Stable. Instructions to patient/family Discussed at length with the patient. Valerie OVERTON MD Feb 28, 2020 17:08
== END 2020-02-28 09:45 | disposition home or self-care (01) ==
LOC: CATH 07:06 → ICU 15:25 → CATH 02-28 09:45
PROVIDERS: ATTEND Internal Medicine Interventional Cardiology
DX: I48.19 Other persistent atrial fibrillation (principal); I48.3 Typical atrial flutter; I10 Essential (primary) hypertension; Z87.891 Personal history of nicotine dependence; Z79.01 Long term (current) use of anticoagulants
CPT/HCPCS: 80048; 80053; 85027 ×2; 85610; 85730; 87081; 92960; 93005; 93613; 93622; 93655; 93656; 93657; 93662; C1730 ×2; C1732 ×2; C1759; C1894 ×5; 36415; 93653

== ENCOUNTER → 2022-01-07 | Outpatient (CLI) | payer BC, MEDICARE, OTHER ==
[~2022-01-07] MED LIST changes: +CATHETER FLUSH 10 ML SYR IVP PRN; +DRON400T6 PO; +REGADENOSON 0.4 MG/5 ML SYR (LEXISCAN) IV ONE; -SULF1TAB35 PO; +SULF1TAB38 PO
[2022-01-07 09:16] VITALS: BP 150/97
--- NOTE | 2022-01-10 11:11 | STRESS TEST ---
DATE OF SERVICE: 01/07/2022 RESTING AND POST REGADENOSON TECHNETIUM-99M TETROFOSMIN SPECT CT IMAGING ORDERING PHYSICIAN: Martha Ken APRN PRIMARY PHYSICIAN: Dr. Rosales. CLINICAL DIAGNOSIS: Chest discomfort. Baseline images were carried out after injection of 10.32 mCi of technetium-99m Tetrofosmin. This was followed by 0.4 mg regadenoson and 28.8 mCi of technetium-99m Tetrofosmin for stress imaging. The electrocardiogram showed atrial fibrillation throughout the study. Ventricular rate was well controlled. The electrocardiogram did not change significantly. The patient did not report symptoms. Review of images at rest and following stress indicates a moderate inferolateral perfusion defect, which is predominantly transient. SDS is 6. Gated images show normal global left ventricular systolic function with normal regional wall motion. Left ventricular ejection fraction is calculated to be 57%. CONCLUSIONS: 1. This study is indicative of a moderate amount of inferolateral ischemia. 2. Normal regional wall motion. 3. Normal global left ventricular systolic function with a calculated ejection fraction of 57%. Job ID: [id number] DocumentID: [id number] Dictated Date: 01/10/2022 09:51:57 Technical Fellow Date: 01/10/2022 11:10:42 Dictated By: JEFFREY DRAPER MD, MA, FACP, FACC,
== END ==
LOC: CARD 07:45
PROVIDERS: ATTEND Nurse Practitioner Family
DX: R07.89 Other chest pain (principal)
CPT/HCPCS: 78452; 93017; A9502

== ENCOUNTER 2022-01-21 10:00 | Day surgery (SDC) | payer MEDICARE ==
[~2022-01-21] VITALS: Ht 170.2 cm; Wt 56.2 kg
[2022-01-21] VITALS (10 sets, daily range): BP systolic 130–179; BP diastolic 79–106
[2022-01-21 08:20] LABS: HEMATOCRIT 45 % (40-54); HEMOGLOBIN 15.2 g/dL (13.3-17.7); MEAN CORPUSCULAR HEMOGLOBIN 33 pg (25-34); MEAN CORPUSCULAR HGB CONC 34 g/dL (32-36); MEAN CORPUSCULAR VOLUME 97 fL (80-99); MEAN PLATELET VOLUME 9.7 fL (9.0-12.2); PLATELET COUNT 270 10^3/uL (130-400); WHITE BLOOD COUNT 7.3 10^3/uL (4.3-11.0)
[2022-01-21 08:35] LABS: INR 1.1 (0.8-1.4); PROTHROMBIN TIME PATIENT 14.2 SEC (12.2-14.7)
[2022-01-21 08:36] LABS: ALBUMIN 4.3 GM/DL (3.2-4.5); POTASSIUM 3.6 MMOL/L (3.6-5.0)
[2022-01-21 08:37] LABS: CALCIUM 9.5 MG/DL (8.5-10.1)
[2022-01-21 08:38] LABS: TOTAL PROTEIN 7.7 GM/DL (6.4-8.2)
[2022-01-21 08:40] LABS: BILIRUBIN,TOTAL 0.8 MG/DL (0.1-1.0)
[~2022-01-21 10:00] MED LIST changes: +ASCO-262 PO; -CATHETER FLUSH 10 ML SYR IVP PRN; +FLEC50TA PO; +HEParin (CATH LAB) 2,000 ML IV ONE; +LIDOCAINE 1% INJ 20 ML VIAL ONE; +MTP25TSR PO; +MULT-1136 PO; +NS IV 1000 ML 1,000 ML IV SCH; +NS IV 1000 ML 1,000 ML ONE; -REGADENOSON 0.4 MG/5 ML SYR (LEXISCAN) IV ONE
[2022-01-21] MEDS ORDERED: MIDAZOLAM 5 MG/5 ML (VERSED) VIAL ONE (10:05)
[2022-01-21] MEDS ORDERED: fentaNYL INJ 100 MCG/2 ML AMP ONE (10:05)
--- NOTE | 2022-01-21 10:58 | Cardiac Procedure Note-CS/ASA ---
Pre-Procedure Note Pre-Op Procedure Note H&P Reviewed The H&P was reviewed, patient examined and no changes noted. Date H&P Reviewed: January 21, 2022 Time H&P Reviewed: 10:10 Conscious Sedation Pre-Proced Time 10:10 ASA Score 3 For ASA 3 and 4: Consider anesthesia and medical clearance. Also, for patients with a history of failed moderate sedation consider anesthesia. Airway Lungs Heart ASA score ASA 1: a normal healthy patient ASA 2: a patient with a mild systemic disease (mid diabetes, controlled hypertension, obesity ASA 3: a patient with a severe systemic disease that limits activity (angina, COPD, prior Myocardial infarction) ASA 4: a patient with an incapacitating disease that is a constant threat to life (CHF, renal failure) ASA 5: a moribund patient not expected to survive 24 hrs. (ruptured aneurysm) ASA 6: a declared brain- patient whose organs are being harvested. For emergent operations, add the letter E after the classification Mallampati Classification Grade 2 Sedation Plan Analgesia, Amnesia, Plan communicated to team members, Discussed options with patient/fam, Discussed risks with patient/fam The patient is an appropriate candidate to undergo the planned procedure, sedation, and anesthesia. The patient immediately re-assessed prior to indication. JEFFREY DRAPER MD FACP FAC CCDS January 21, 2022 10:58
--- NOTE | 2022-01-21 11:06 | Discharge Inst-Post CATH ---
Discharge Inst-CATH/EP Post Cardiac Cath/EP D/C Inst Follow Up/Plan F/u with Dr Bazan in 2-3 weeks ACTIVITY * Go Home directly and rest. * Limit activity of the leg (or wrist if it was used) for 7 days including aerobics, swimming, jogging, bicycling, etc. * Restrict stair-climbing for 7 days if possible, if not, climb up with your non-cath leg, then bring together on the same step. * Avoid lifting, pushing, pulling or excessive movement of the affected extremity for 7 days. * Customary sexual activity may be resumed after 2 days-use caution not to use a position that strains or causes pain to the affected extremity. * No driving for 24 hours. * NO SMOKING. * Avoid straining for bowel movements for 7 days. * Gentle walking on level ground is allowed. * Returning to work will depend on the type of procedure and the results. Your doctor will discuss this with you. CALL YOUR DOCTOR FOR ANY OF THE FOLLOWING: *If bleeding from the puncture site occurs- Apply gentle pressure to site with clean cloth and call your doctor or EMS. * If a knot or lump forms under the skin, increases in size, or causes pain. * If bruising appears to be worsening or moving further down your leg instead of disappearing. * Temperature above 101 F. CARE OF YOUR GROIN INCISION; * Bruising or purple discoloration of the skin near the puncture site is common. * You may shower only, no bathtub bathing for 5 days. Be careful to avoid slipping as your leg may feel stiff. * If a closure device was used on your femoral artery, please see the attached guide regarding care of the device and your leg. * Leave dressing on FOR 24 hours. CARE OF YOUR WRIST INCISION; * Bruising or purple discoloration of the skin near the puncture site is common. * You may shower. * DO NOT submerge wrist. * Leave dressing on FOR 24 hours. JEFF[facility]Y BAZAN MD [facility] FAC CCDS January 21, 2022 11:06
--- NOTE | 2022-01-21 11:06 | Discharge Inst-Cardiology ---
Discharge Inst-Cardiac Discharge Medications Continued Medications: Apixaban (Eliquis) 5 Mg Tablet 5 MG PO BID, TAB Ascorbate Calcium (Vitamin C) 500 Mg Tablet 500 MG PO DAILY, TAB Flecainide Acetate (Flecainide Acetate) 50 Mg Tablet 50 MG PO Q12HRS, TAB Metoprolol Succinate (Metoprolol Succinate) 25 Mg Tab.er.24h 25 MG PO DAILY, TAB Multivitamin (Multivitamin) 1 Each Tablet 1 EACH PO DAILY, TAB JEFFREY DRAPER MD FACP FAC CCDS January 21, 2022 11:06
[2022-01-21] MEDS ORDERED: NS IV 1000 ML 1,000 ML IV SCH (11:15)
[2022-01-21] MEDS ORDERED: PATIENT MAY USE OWN MEDS, ALL PO SCH (11:15)
--- NOTE | 2022-01-21 12:06 | CARDIAC CATHETERIZATION ---
DATE OF SERVICE: 01/21/2022 CARDIAC CATHETERIZATION REPORT The patient is a 66-year-old gentleman who has been experiencing chest discomfort and who has coronary artery disease risk factors. A myocardial perfusion imaging study was indicative of inferolateral ischemia. Cardiac catheterization was carried out. Informed consent was obtained. DESCRIPTION OF PROCEDURE: She was brought to the cardiac catheterization laboratory in a fasting state. Right groin was prepared and draped in the usual sterile fashion. Lidocaine 1% was used for local anesthesia. Modified Seldinger technique used to advance a 5-Mongolian sheath in the right femoral artery. A 5-Mongolian JL4 guide catheter was not resulting in good engagement. We exchanged the catheter for a 5-Mongolian JL4.5 diagnostic catheter. This resulted in good engagement and we were able to carry out left coronary angiography. We then proceeded with right coronary angiography with a JR4 diagnostic catheter. This was not resulting in good engagement. We were not able to torque the catheter because of tortuosity in the iliac arterial system. Accordingly, we removed the catheter and exchanged the sheath over a wire for a 45 cm 6-Mongolian sheath. We were then able to advance a 6-Mongolian JR4 diagnostic catheter and we were able to torque it appropriately and we were able to engage the right coronary artery and carry out angiography. We used a 5-Mongolian pigtail catheter for left heart catheterization. We did not perform left ventricular angiography. This was to conserve contrast. Left ventricular ejection fraction was seemed to be 57% on a myocardial perfusion imaging study of 01/07/2022 and there were no regional wall motion abnormalities on the myocardial perfusion imaging. At the end of the procedure, we exchanged the long sheath for a short 6-Mongolian sheath. Angiography of the right femoral artery had been carried out through the sheath prior to the coronary angiography procedure. At the end of the procedure, Mynx was used to achieve hemostasis. He tolerated the procedure well. HEMODYNAMICS: Left ventricular end-diastolic pressure following coronary angiography was 10 mmHg. There was no significant pressure gradient on pullback across the aortic valve. Ascending aortic pressure was 137/74 with a mean of 99 mmHg. CORONARY ANGIOGRAPHY: Left main coronary artery is free of significant disease. Left anterior descending and left circumflex arteries are free of significant disease. Right coronary artery is dominant and free of significant disease. CONCLUSIONS: 1. No angiographically significant coronary artery disease. 2. Normal left ventricular end-diastolic pressure. DISCUSSION AND RECOMMENDATIONS: Based on results of the study, myocardial perfusion imaging study appears to have been false positive. Continuing risk factor modification is advised. Continuing outpatient followup is advised. Job ID: [id number] DocumentID: [id number] Dictated Date: 01/21/2022 11:11:11 Veterinarian Laboratory Animal Care Date: 01/21/2022 12:05:24 Dictated By: JEFFREY DRAPER MD, MA, FACP, FACC,
== END 2022-01-21 14:52 | disposition home or self-care (01) ==
LOC: CATH 10:00 → SDC 11:37 → CATH 14:52
PROVIDERS: ATTEND Internal Medicine Cardiovascular Disease
DX: R07.89 Other chest pain (principal); I49.5 Sick sinus syndrome; I48.19 Other persistent atrial fibrillation; I48.92 Unspecified atrial flutter; I10 Essential (primary) hypertension; Z87.891 Personal history of nicotine dependence; Z79.01 Long term (current) use of anticoagulants
CPT/HCPCS: 80053; 80061; 85027; 85610; 85730; 87081; 93005; 93458; C1887; C1894 ×2; 36415

== ENCOUNTER 2023-03-17 06:38 | Day surgery (SDC) | payer MEDICARE ==
[2023-03-17] VITALS (18 sets, daily range): BP systolic 120–188; BP diastolic 77–116
[~2023-03-17] VITALS: Ht 170.2 cm; Wt 65.3 kg
[~2023-03-17 06:38] MED LIST changes: -HEParin (CATH LAB) 2,000 ML IV ONE; -LIDOCAINE 1% INJ 20 ML VIAL ONE; -NS IV 1000 ML 1,000 ML IV SCH; -NS IV 1000 ML 1,000 ML ONE
[2023-03-17] MEDS ORDERED: LIDOCAINE 1% INJ 20 ML VIAL ONE (06:59)
[2023-03-17] MEDS ORDERED: HEParin (CATH LAB) 1,000 ML IV ONE (06:59)
[2023-03-17] MEDS ORDERED: NS IV 1000 ML 2,000 ML ONE (06:59)
[2023-03-17] MEDS ORDERED: ceFAZolin INJECTION 1,000 MG ONE (06:59)
[2023-03-17] MEDS ORDERED: ceFAZolin INJECTION 1,000 MG VIAL IV ONE (07:00)
[2023-03-17] MEDS ORDERED: NS IV 1000 ML 1,000 ML IV ONE (07:00)
[2023-03-17 07:18] LABS: HEMATOCRIT 45 % (40-54); HEMOGLOBIN 15.5 g/dL (13.3-17.7); MEAN CORPUSCULAR HEMOGLOBIN 34 pg (25-34); MEAN CORPUSCULAR HGB CONC 35 g/dL (32-36); MEAN CORPUSCULAR VOLUME 97 fL (80-99); MEAN PLATELET VOLUME 10.3 fL (9.0-12.2); PLATELET COUNT 222 10^3/uL (130-400); WHITE BLOOD COUNT 6.7 10^3/uL (4.3-11.0)
[2023-03-17 07:32] LABS: PROTHROMBIN TIME PATIENT 13.3 SEC (12.2-14.7)
[2023-03-17] MEDS ORDERED: MIDAZOLAM 5 MG/5 ML (VERSED) VIAL ONE ×2 (07:38→08:43)
[2023-03-17] MEDS ORDERED: NS (IVPB) 50 ML ONE (07:38)
[2023-03-17] MEDS ORDERED: fentaNYL INJ 100 MCG/2 ML AMP ONE ×2 (07:38→08:43)
[2023-03-17 07:39] LABS: ALBUMIN 3.9 GM/DL (3.2-4.5); CALCIUM 9.2 MG/DL (8.5-10.1); CREATININE SERUM 1.01 MG/DL (0.60-1.30); POTASSIUM 3.7 MMOL/L (3.6-5.0); TOTAL PROTEIN 6.8 GM/DL (6.4-8.2)
--- NOTE | 2023-03-17 10:41 | Cardiac Procedure Note-CS/ASA ---
Pre-Procedure Note Pre-Op Procedure Note Date of Available H&P: Mar 12, 2023 Date H&P Reviewed: Mar 17, 2023 Time H&P Reviewed: 08:15 History & Physical: H&P Reviewed, No changes noted Moderate Sedation PreProcedure ASA Score 3 Airway Lungs Heart ASA score ASA 1: a normal healthy patient ASA 2: a patient with a mild systemic disease (mid diabetes, controlled hypertension, obesity ASA 3: a patient with a severe systemic disease that limits activity (angina, COPD, prior Myocardial infarction) ASA 4: a patient with an incapacitating disease that is a constant threat to life (CHF, renal failure) ASA 5: a moribund patient not expected to survive 24 hrs. (ruptured aneurysm) ASA 6: a declared brain- patient whose organs are being harvested. For emergent operations, add the letter E after the classification Mallampati Classification Grade 2 Sedation Plan Analgesia, Amnesia, Plan communicated to team members The patient is an appropriate candidate to undergo the planned procedure, sedation, and anesthesia. The patient immediately re-assessed prior to indication. JEFFREY DRAPER MD FACP FAC CCDS Mar 17, 2023 10:41
[2023-03-17] MEDS ORDERED: oxyCODONE/APAP 5/325MG (PERCOCET 5) TABLET PO PRN (10:45)
[2023-03-17] MEDS ORDERED: ACETAMINOPHEN 325 MG TABLET PO PRN (10:45)
[2023-03-17] MEDS ORDERED: PATIENT MAY USE OWN MEDS, ALL PO SCH (10:45)
[2023-03-17] MEDS ORDERED: NS IV 1000 ML 1,000 ML IV SCH (10:45)
[2023-03-17] MEDS: ceFAZolin INJECTION 1,000 MG in NS (IVPB) 50 ML IV SCH ×2 (15:35→21:34)
--- NOTE | 2023-03-17 16:04 | Diagnostic Imaging Report ---
EXAMINATION: Chest 2 view HISTORY: Pacemaker placement. COMPARISON: None available. FINDINGS: The lungs are clear without edema or pneumonia. No pleural effusion or pneumothorax. Heart size is normal. A single lead pacemaker is present with the tip projecting over the right ventricle. There is mild left base atelectasis. IMPRESSION: 1. Mild left base atelectasis. Dictated by: Dictated on workstation # [id number]
--- NOTE | 2023-03-17 16:27 | OPERATIVE REPORT ---
DATE OF SERVICE: 03/17/2023 PROCEDURE: Implantable loop recorder explantation. The patient is a 67-year-old gentleman who has had an implantable loop recorder in place to evaluate syncope and near syncope. Implantable loop recorder recordings demonstrated intermittent symptomatic bradycardia and pacemaker implantation was carried out earlier today. Implantable loop recorder implantation was carried out because the patient now has a permanent pacemaker in place and the implantable loop recorder is no longer needed. The site of implantation was prepared and draped in the usual sterile fashion. 1% lidocaine was used for local anesthesia. A small incision was made at the medial end of the device and the device was extracted out of the pocket without any difficulty. The wound edges were closed using Dermabond and Steri-Strips. He tolerated the procedure well. Job ID: [id number] DocumentID: [id number] Dictated Date: 03/17/2023 10:19:43 Gas Mask Assembler Date: 03/17/2023 16:24:00 Dictated By: JEFFREY DRAPER MD; MICHELLE; FACP; FACC;
--- NOTE | 2023-03-17 16:36 | OPERATIVE REPORT ---
DATE OF SERVICE: 03/17/2023 PREOPERATIVE DIAGNOSIS: Symptomatic bradycardia. POSTOPERATIVE DIAGNOSIS: Symptomatic bradycardia. PROCEDURE: Single-chamber pacemaker implantation. The patient is a 67-year-old gentleman with permanent atrial fibrillation and episodes of symptomatic bradycardia due to long pauses in the absence of any rate lowering medications. Permanent single chamber pacemaker implantation was carried out today after having obtained an informed consent. DESCRIPTION OF PROCEDURE: He was brought to the cardiac catheterization laboratory. The left prepectoral area was prepared and draped in the usual sterile fashion. A 1% lidocaine used for local anesthesia. Modified Seldinger technique was used to advance a guidewire into the left subclavian vein and the tip of the wire was placed in the right atrium. Sharp and blunt dissection was used to make a pacemaker pocket. Good hemostasis was assured. The pocket was packed with gauze soaked in saline. The guidewire was used to advance the sheath and the guidewire was removed. The sheath was used to advance an active fixation lead and the sheath was removed. All lead manipulations were carried out under fluoroscopy. The tip of the right ventricular lead was placed in the right ventricle close to the apex against the lower part of the intraventricular septum and actively fixed. Good sensing and capture thresholds were obtained. The model number of the lead is [id number] [id number], and the serial number is [id number]. This lead was fixed to the prepectoral fascia using a sleeve and 0 Ethibond. The saline gauze was removed from the pocket and the pocket was thoroughly irrigated with saline. Good hemostasis was assured. The lead was attached to a single chamber pacemaker. The model number of the pacemaker is [id number] with serial number [id number]. The pacemaker and the attached end of the lead were placed in a Tyrx pouch and everything was placed in the pacemaker pocket and the pocket was closed in 2 layers using 3-0 Vicryl. R waves are measured at 8.8 millivolts, pacing impedance is 646 ohms. Ventricular capture threshold is 0.75 volts at 0.4 milliseconds. The pacemaker set in the VVIR mode. Lower pace rate is 60 beats per minute. Upper activity rate is 130 beats per minute. Job ID: [id number] DocumentID: [id number] Dictated Date: 03/17/2023 09:45:23 Farm Equipment Mechanic Apprentice Date: 03/17/2023 16:34:00 Dictated By: JEFFREY DRAPER MD; MICHELLE; FACP; FACC; OLIVIER
[2023-03-17] MEDS ORDERED: APIXABAN 5 MG (ELIQUIS) TABLET PO SCH (21:00)
[2023-03-18 04:00] VITALS: BP 141/96
[2023-03-18 04:40] LABS: HEMATOCRIT 42 % (40-54); HEMOGLOBIN 14.9 g/dL (13.3-17.7); MEAN CORPUSCULAR HEMOGLOBIN 34 pg (25-34); MEAN CORPUSCULAR HGB CONC 35 g/dL (32-36); MEAN CORPUSCULAR VOLUME 96 fL (80-99); MEAN PLATELET VOLUME 10.4 fL (9.0-12.2); PLATELET COUNT 220 10^3/uL (130-400); WHITE BLOOD COUNT 7.3 10^3/uL (4.3-11.0)
[2023-03-18 05:20] LABS: ALBUMIN 3.5 GM/DL (3.2-4.5)
[2023-03-18] MEDS: ceFAZolin INJECTION 1,000 MG in NS (IVPB) 50 ML IV SCH (05:22)
[2023-03-18 05:23] LABS: TOTAL PROTEIN 6.2 GM/DL (6.4-8.2)
[2023-03-18 05:26] LABS: CREATININE SERUM 0.91 MG/DL (0.60-1.30)
[2023-03-18] MEDS ORDERED: MULTIVIT W/MINERALS TAB (THERAGRAN M) PO SCH (07:00)
[2023-03-18 07:12] VITALS: BP 139/104
--- NOTE | 2023-03-18 08:00 | Consultation-Cardiology ---
HPI-Cardiology Cardiology Consultation: Date of Consultation 03/18/23 Date of Admission Attending Physician Loi Rosales MD Admitting Physician Admitting Physician: Attending Physician: Nena Bazan MD [facility] Consulting Physician LOUIE SAUER [id number] Hx Immunizations Up To Date Tetanus Booster (TDap): Unknown Date of Influenza Vaccine: Jan 04, 2019 Past Medical History PM As described under Assessment. Allergies and Home Medications Allergies Coded Allergies: No Known Drug Allergies (Unverified , 07/25/19) Patient Home Medication List Apixaban (Eliquis) 5 Mg Tablet, 5 MG PO BID, (Reported) Entered as Reported by: AMBIKA LUNDBERG on 02/27/20741 Last Action: Continued Ascorbate Calcium (Vitamin C) 500 Mg Tablet, 500 MG PO DAILY, (Reported) Entered as Reported by: AMBIKA LUNDBERG on 01/21/22820 Last Action: Converted Multivitamin (Multivitamin) 1 Each Tablet, 1 EACH PO DAILY, (Reported) Entered as Reported by: AMBIKA LUNDBERG on 01/21/22820 Last Action: Converted Discontinued Medications Flecainide Acetate (Flecainide Acetate) 50 Mg Tablet, 50 MG PO Q12HRS, (Reported) Discontinued Reason: No Longer Taking Entered as Reported by: AMBIKA LUNDBERG on 01/21/22820 Last Action: Discontinued Metoprolol Succinate (Metoprolol Succinate) 25 Mg Tab.er.24h, 25 MG PO DAILY, (Reported) Discontinued Reason: No Longer Taking Entered as Reported by: AMBIKA LUNDBERG on 01/21/22820 Last Action: Discontinued Physical Exam-Cardiology Physical Exam Vital Signs/I&O 03/17/23 03/17/23 03/17/23 03/17/23 20:00 21:00 23:35 23:40 Temp 37.2 Pulse 78 68 Resp 21 18 B/P (MAP) 139/77 (97) 141/101 (114) 130/94 (106) Pulse Ox 94 96 95 O2 Delivery Room Air Room Air Room Air 03/18/23 03/18/23 00:37 04:00 Temp 36.9 Pulse 77 69 Resp 18 B/P (MAP) 141/96 (111) Pulse Ox 95 O2 Delivery Room Air 03/17/23 23:59 Intake Total 2175 ml Output Total 2250 ml Balance -75 ml Capillary Refill : Data Review Labs Laboratory Tests 03/18/23 04:32: White Blood Count 7.3, Red Blood Count 4.41, Hemoglobin 14.9, Hematocrit 42, Mean Corpuscular Volume 96, Mean Corpuscular Hemoglobin 34, Mean Corpuscular Hemoglobin Concent 35, Red Cell Distribution Width 13.0, Platelet Count 220, Mean Platelet Volume 10.4, Sodium Level 141, Potassium Level 4.0, Chloride Level 106, Carbon Dioxide Level 25, Anion Gap 10, Blood Urea Nitrogen 13, Creatinine 0.91, Estimat Glomerular Filtration Rate 91, BUN/Creatinine Ratio 14, Glucose Level 102, Calcium Level 9.0, Corrected Calcium 9.4, Total Bilirubin 1.0, Aspartate Amino Transf (AST/SGOT) 17, Alanine Aminotransferase (ALT/SGPT) 11, Alkaline Phosphatase 89, Total Protein 6.2L, Albumin 3.5 Laboratory Tests 03/17/23 07:13 03/18/23 04:32 Radiology NAME: AIDA IGLESIAS [facility] REC#: [id number] PT STATUS: [facility] [place] 1955 PHYSICIAN: NENA BAZAN MD, MA, FACP, FACC, FSCAI, CCDS ADMIT DATE: 03/17/23/[facility] Signed Date of Exam:03/17/23 CHEST PA/LAT (2 VIEW) EXAMINATION: Chest 2 view HISTORY: Pacemaker placement. COMPARISON: None available. FINDINGS: The lungs are clear without edema or pneumonia. No pleural effusion or pneumothorax. Heart size is normal. A single lead pacemaker is present with the tip projecting over the right ventricle. There is mild left base atelectasis. IMPRESSION: 1. Mild left base atelectasis. Dictated by: Dictated on workstation # [id number] Dict: 03/17/23 1602 Trans: 03/17/23 1717 AS6 [id number] Interpreted by: LOI REED MD Electronically signed by: LOI ERED MD 03/17/23 1717 A/P-Cardiology Assessment/Admission Diagnosis Sinus node dysfunction, currently permanent a-fib with symptomatic pauses - AF ablation for persistent AF and typical atrial flutter ablation done on 02/27/[address] Overton. ILR shows a few episodes of AF post ablation - ILR done on 08/25/[address] Overton - OAC with Eliquis - ILR transmission of 01-18-23 showed a pause and again on 02-15-23 - S/P PPM implant on 03-17-23 Non-specific chest discomfort - undetermined etiology - Echocardiogram 09/13/[address] Overton shows normal LVEF, DD1. LA diameter 4.6cm. - Nuclear stress test 09/08/[address] Overton shows normal perfusion - MPI 01-07-22 This study is indicative of a moderate amount of inferolateral ischemia. Normal regional wall motion. Normal global left ventricular systolic function with a calculated ejection fraction of 57%. - Cardiac cath on 01-21-22 (following abnormal MPI): No angiographically significant coronary artery disease. Normal left ventricular end-diastolic pressure. HTN - controlled Carotid dz - Minimal plaque per u/s of 12-27-21 LOUIE PIERSON [facility] Mar 18, 2023 08:00
[2023-03-18] MEDS ORDERED: CEFU500T63 PO (08:01)
--- NOTE | 2023-03-18 08:02 | Discharge Inst-Cardiology ---
Discharge Inst-Cardiac Discharge Medications New Medications: Cefuroxime Axetil (Cefuroxime) 500 Mg Tablet 500 MG PO BID, #10 TAB Continued Medications: Apixaban (Eliquis) 5 Mg Tablet 5 MG PO BID, TAB Ascorbate Calcium (Vitamin C) 500 Mg Tablet 500 MG PO DAILY, TAB Multivitamin (Multivitamin) 1 Each Tablet 1 EACH PO DAILY, TAB Patient Instructions Patient Instructions: Please schedule follow up appointment on March 20 for a dressing change with Dr. Bazan's nurse Please schedule follow up appointment to see Dr. Bazan in 4 weeks LOUIE PIERSON Mar 18, 2023 08:02
--- NOTE | 2023-03-18 08:53 | Progress Note - Cardiology ---
Cardiology SOAP Progress Note Subjective: Sitting up in bed States he feels good No c/o discomfort at the device insertion site No c/o CP or SOB Objective: I&O/Vital Signs 03/17/23 03/17/23 03/17/23 03/18/23 21:00 23:35 23:40 00:37 Temp 37.2 Pulse 68 77 Resp 18 B/P (MAP) 141/101 (114) 130/94 (106) Pulse Ox 96 95 O2 Delivery Room Air Room Air 03/18/23 03/18/23 03/18/23 04:00 07:00 07:12 Temp 36.9 36.5 Pulse 69 69 73 Resp 18 18 B/P (MAP) 141/96 (111) 139/104 (116) Pulse Ox 95 95 O2 Delivery Room Air Room Air 03/18/23 00:00 Intake Total 2175 ml Output Total 2250 ml Balance -75 ml Side: left Device Insertion Site: without hematoma Swelling: without swelling Drainage: No Bruising: mild bruising Constitutional: AAO x 3, well-developed, well-nourished Respiratory: No accessory muscle use, No respiratory distress; chest expansion is symmetric, chest is bilaterally symmetric, lungs clear to auscultation Cardiovascular: irregularly irregular; No JVD; S1 and S2 Gastrointestional: No tender; soft, audible bowel sounds Extremities: no lower extremity edema bilateral Neurologic/Psychiatric: other (moves all extremities) Skin: No rash on exposed areas, No ulcerations on exposed areas Results/Procedures: Labs Laboratory Tests 03/18/23 04:32: White Blood Count 7.3, Red Blood Count 4.41, Hemoglobin 14.9, Hematocrit 42, Mean Corpuscular Volume 96, Mean Corpuscular Hemoglobin 34, Mean Corpuscular Hemoglobin Concent 35, Red Cell Distribution Width 13.0, Platelet Count 220, Mean Platelet Volume 10.4, Sodium Level 141, Potassium Level 4.0, Chloride Level 106, Carbon Dioxide Level 25, Anion Gap 10, Blood Urea Nitrogen 13, Creatinine 0.91, Estimat Glomerular Filtration Rate 91, BUN/Creatinine Ratio 14, Glucose Level 102, Calcium Level 9.0, Corrected Calcium 9.4, Total Bilirubin 1.0, Aspartate Amino Transf (AST/SGOT) 17, Alanine Aminotransferase (ALT/SGPT) 11, Alkaline Phosphatase 89, Total Protein 6.2L, Albumin 3.5 Microbiology 03/17/23 MRSA Screen - Final, Complete MRSA not isolated Laboratory Tests 03/17/23 07:13 03/18/23 04:32 A/P: Assessment: Sinus node dysfunction, currently permanent a-fib with symptomatic pauses - AF ablation for persistent AF and typical atrial flutter ablation done on 02/27/[address] Overton. ILR shows a few episodes of AF post ablation - ILR done on 08/25/[address] Overton - OAC with Eliquis - ILR transmission of 01-18-23 showed a pause and again on 02-15-23 - S/P PPM implant on 03-17-23 Non-specific chest discomfort - undetermined etiology - Echocardiogram 09/13/[address] Overton shows normal LVEF, DD1. LA diameter 4.6cm. - Nuclear stress test 09/08/[address] Overton shows normal perfusion - MPI 01-07-22 This study is indicative of a moderate amount of inferolateral ischemia. Normal regional wall motion. Normal global left ventricular systolic function with a calculated ejection fraction of 57%. - Cardiac cath on 01-21-22 (following abnormal MPI): No angiographically significant coronary artery disease. Normal left ventricular end-diastolic pressure. HTN - controlled Carotid dz - Minimal plaque per u/s of 12-27-21 Plan: S/P PPM implant on 03-17-23 Awaiting device interrogation this morning Plan to discharge home today Out pt f/u Discussed activity restrictions and site care LOUIE PIERSON Mar 18, 2023 08:53
[2023-03-18] MEDS ORDERED: APIXABAN 5 MG (ELIQUIS) TABLET PO SCH (09:00)
[2023-03-18] MEDS ORDERED: ASCORBIC ACID (VIT C) 500 MG TABLET PO SCH (09:00)
--- NOTE | 2023-03-18 12:59 | Progress Note - Cardiology ---
Cardiology SOAP Progress Note Subjective: No shortness of breath No cp or palp or syncope No n/v/d No focal weakness No leg swelling Wishes to go home Objective: I&O/Vital Signs 03/18/23 03/18/23 03/18/23 03/18/23 04:00 07:00 07:12 09:00 Temp 36.9 36.5 Pulse 69 69 73 Resp 18 18 B/P (MAP) 141/96 (111) 139/104 (116) Pulse Ox 95 95 96 O2 Delivery Room Air Room Air Room Air 03/18/23 00:00 Intake Total 2175 ml Output Total 2250 ml Balance -75 ml Side: left Device Insertion Site: without hematoma Swelling: without swelling Drainage: No Bruising: mild bruising Constitutional: AAO x 3, well-developed, well-nourished Respiratory: No accessory muscle use, No respiratory distress; chest expansion is symmetric, chest is bilaterally symmetric, lungs clear to auscultation Cardiovascular: irregularly irregular; No JVD; S1 and S2 Gastrointestional: No tender; soft, audible bowel sounds Extremities: no lower extremity edema bilateral Neurologic/Psychiatric: other (moves all extremities) Skin: No rash on exposed areas, No ulcerations on exposed areas Results/Procedures: Labs Laboratory Tests 03/18/23 04:32: White Blood Count 7.3, Red Blood Count 4.41, Hemoglobin 14.9, Hematocrit 42, Mean Corpuscular Volume 96, Mean Corpuscular Hemoglobin 34, Mean Corpuscular Hemoglobin Concent 35, Red Cell Distribution Width 13.0, Platelet Count 220, Mean Platelet Volume 10.4, Sodium Level 141, Potassium Level 4.0, Chloride Level 106, Carbon Dioxide Level 25, Anion Gap 10, Blood Urea Nitrogen 13, Creatinine 0.91, Estimat Glomerular Filtration Rate 91, BUN/Creatinine Ratio 14, Glucose Level 102, Calcium Level 9.0, Corrected Calcium 9.4, Total Bilirubin 1.0, Aspartate Amino Transf (AST/SGOT) 17, Alanine Aminotransferase (ALT/SGPT) 11, Alkaline Phosphatase 89, Total Protein 6.2L, Albumin 3.5 Microbiology 03/17/23 MRSA Screen - Final, Complete MRSA not isolated Laboratory Tests 03/17/23 07:13 03/18/23 04:32 A/P: Assessment: Sinus node dysfunction, currently permanent a-fib with symptomatic pauses - AF ablation for persistent AF and typical atrial flutter ablation done on by Dr. Overton. ILR shows a few episodes of AF post ablation - ILR done on 08/25/[address] Overton - OAC with Eliquis - ILR transmission of 01-18-23 showed a pause and again on 02-15-23 - S/P PPM implant on 03-17-23, functioning normally on interrogation of 03-18-23 Non-specific chest discomfort of undetermined etiology, none currently - Echocardiogram 09/13/[address] Overton shows normal LVEF, DD1. LA diameter 4.6cm. - Nuclear stress test 09/08/[address] Overton shows normal perfusion - MPI 01-07-22 This study is indicative of a moderate amount of inferolateral ischemia. Normal regional wall motion. Normal global left ventricular systolic function with a calculated ejection fraction of 57%. - Cardiac cath on 01-21-22 (following abnormal MPI): No angiographically significant coronary artery disease. Normal left ventricular end-diastolic pressure. HTN - controlled Carotid dz - Minimal plaque per u/s of 12-27-21 Plan: S/P PPM implant on 03-17-23 Device functioning normally Plan to discharge home today Out pt f/u Discussed activity restrictions and site care. Questions answered JEFFREY DRAPER MD FACP FAC CCDS Mar 18, 2023 12:59
== END 2023-03-18 10:30 | disposition home or self-care (01) ==
LOC: CATH 06:38 → CSD 10:35 → CATH 03-18 10:30
PROVIDERS: ATTEND Internal Medicine Cardiovascular Disease
DX: R00.1 Bradycardia, unspecified (principal); R07.89 Other chest pain; I48.21 Permanent atrial fibrillation; R94.39 Abnormal result of other cardiovascular function study; I11.9 Hypertensive heart disease without heart failure; I65.23 Occlusion and stenosis of bilateral carotid arteries; Z95.9 Presence of cardiac and vascular implant and graft, unspecified; Z98.890 Other specified postprocedural states; Z87.891 Personal history of nicotine dependence; Z79.01 Long term (current) use of anticoagulants
CPT/HCPCS: 33207; 33286; 71046; 80053 ×2; 80061; 85027 ×2; 85610; 85730; 87081; 93005 ×2; C1786; C1898; 36415